=== PATIENT | female | born 1935 | race Caucasian/White ===

== ENCOUNTER → 2017-08-11 15:46 | Outpatient (CLI) | payer MEDICARE, SELFPAY ==
[2017-08-11 17:23] LABS: Absolute Lymphocyte Count 1.77 X10^3/ul (0.83-4.51); Absolute Neutrophil Count 2.8 X10^3/uL (2.0-7.7); Basophil# 0.03 X10^3/uL; Basophil% 0.6 % (0-1); Eosinophil# 0.26 X10^3/uL; Eosinophils% 4.9 % (0-5); Hematocrit 31.9 % (37-47); Hemoglobin 9.8 g/dl (12.0-15.0); Lymphocyte # 1.77 X10^3/ul (4.0); Lymphocyte % 33.4 % (19-41); Mean Corp Hgb Conc 30.7 g/gl (32-36); Mean Corpuscular Hgb 24.2 pg (27.0-32.0); Mean Corpuscular Volume 78.8 fL (81-99); Mean Platelet Vol. 10.1 fl (6.2-12.0); Monocyte# 0.39 X10^3/uL; Monocyte% 7.4 % (0-10); Neutrophil # 2.84 X10^3/uL (2.7-7.7); Neutrophil % 53.5 % (47-70); Platelet Count 267 K/mm3 (150-450); RBC Distribution Width CV 16.4 % (11.6-14.6); RBC Distribution Width SD 46.5 fl (35.1-43.9); Red Blood Count 4.05 M/mm3 (4.2-5.4); White Blood Count 5.3 K/mm3 (4.4-11.0)
[2017-08-11 17:24] LABS: POSITIVE COUNT NO; POSITIVE DIFFERENTIAL NO; POSITIVE MORPHOLOGY NO
[2017-08-11 17:59] LABS: Anion Gap 9 (5-15); BUN 32 mg/dL (7-18); Calcium,Total 8.9 mg/dL (8.5-10.1); Chloride 106 mmol/L (98-107); EST Glomerular Filtration Rate 33 mL/min (>60); Est Glom Filt Rate - Afr Amer 40 mL/min (>60); Glucose 104 mg/dL (74-106); Potassium 3.9 mmol/L (3.5-5.1); Sodium Level 140 mmol/L (136-145)
[2017-08-11 18:11] LABS: BNP,B-Type NATRIURETIC PEPTIDE 211.6 pg/mL (0-100)
== END ==
PROVIDERS: Family Provider Nurse Practitioner; PCP Nurse Practitioner; Visit Provider Internal Medicine Cardiovascular Disease
DX: R06.02 Shortness of breath (principal); I10 Essential (primary) hypertension
CPT/HCPCS: 36415; 80048; 83880; 85025

== ENCOUNTER → 2017-08-25 15:47 | Outpatient (CLI) | payer MEDICARE, SELFPAY ==
[2017-08-25 16:30] LABS: Protein, Urine (Random) 23.4 mg/dL (<11.9); Protein:Creat Ratio 202 mg/g CRE (0-200)
== END ==
PROVIDERS: Family Provider Nurse Practitioner; PCP Nurse Practitioner; Visit Provider Internal Medicine Nephrology
DX: N18.3 Chronic kidney disease, stage 3 (moderate) (principal)
CPT/HCPCS: 82570; 84156

== ENCOUNTER → 2017-08-31 16:33 | Outpatient (CLI) | payer MEDICARE, SELFPAY ==
--- NOTE | 2017-08-31 16:34 | US_ITS ---
STUDY: RENAL ULTRASOUND - COMPLETE REASON FOR EXAM: Female, 82 years old. Chronic kidney disease stage III TECHNIQUE: Ultrasound evaluation of the kidneys was performed with real-time and static akhtar-scale imaging. COMPARISON: None. FINDINGS: RIGHT KIDNEY: Normal location of the right kidney, which is normal in size. The right kidney measures 13.4 x 5.2 x 7.3 cm. There is a normal cortex of the right kidney. The renal cortex measures 1.0 cm. There are no right renal calculi. There is right hydronephrosis a possible UPJ obstruction. DISTAL RIGHT URETER: There is non-visualization of the distal right ureter. LEFT KIDNEY: Normal location of the left kidney, which is smaller in size. The left kidney measures 8.8 x 4.2 x 3.5 cm. There is thinning cortex of the left kidney. The renal cortex measures 0.9 cm. There is no left renal mass or cyst. There are no left renal calculi. There is no left hydronephrosis. DISTAL LEFT URETER: There is non-visualization of the distal left ureter. BLADDER: The distended urinary bladder has a volume of 180 ml. There is a normal wall thickness of the distended urinary bladder. There is no demonstrated mass within the urinary bladder. There are no demonstrated bladder calculi. US/Kidney and Bladder IMPRESSION: Right hydronephrosis with possible UPJ obstruction. Smaller atrophic left kidney. Electronically Signed: Russell Kerns DO at 18:07 EDT Tel [phone], Service support ,
== END ==
PROVIDERS: Family Provider Nurse Practitioner; PCP Nurse Practitioner; Visit Provider Internal Medicine Nephrology
DX: N18.3 Chronic kidney disease, stage 3 (moderate) (principal); B19.20 Unspecified viral hepatitis C without hepatic coma
CPT/HCPCS: 76770

== ENCOUNTER → 2017-09-01 16:32 | Outpatient (CLI) | payer MEDICARE, SELFPAY ==
[2017-09-01 17:50] LABS: Albumin, Serum 3.7 g/dL (3.2-5.0); BUN 28 mg/dL (7-18); BUN/Creat Ratio 21.7 RATIO (10-20); Calcium,Total 9.5 mg/dL (8.5-10.1); Chloride 106 mmol/L (98-107); Creatinine, Serum 1.29 mg/dL (0.55-1.02); EST Glomerular Filtration Rate 42 mL/min (>60); Est Glom Filt Rate - Afr Amer 51 mL/min (>60); Glucose 102 mg/dL (74-106); Phosphorus 3.5 mg/dL (2.5-4.9); Potassium 3.7 mmol/L (3.5-5.1); Sodium Level 143 mmol/L (136-145)
== END ==
PROVIDERS: Family Provider Nurse Practitioner; PCP Nurse Practitioner; Visit Provider Internal Medicine Nephrology
DX: N17.9 Acute kidney failure, unspecified (principal)
CPT/HCPCS: 36415; 80069

== ENCOUNTER → 2017-09-10 09:35 | Outpatient (CLI) | payer MEDICARE, SELFPAY ==
--- NOTE | 2017-09-10 09:43 | NM_ITS ---
CLINICAL: 82-year-old female with reported history of right kidney hydronephrosis. 99m Tc MAG3 DIURETIC RENAL SCINTIGRAPHY COMPARISON: Renal ultrasound report 08/31/2017 FINDINGS: Following the intravenous administration of 11.0 mCi of 99m Tc MAG3, renal images reveal: 1. The flow study demonstrates relatively symmetric delayed, decreased arterial phase distribution of the radiopharmaceutical to the bilateral kidneys. 2. Immediate static delayed nephrogram images depict decreased, delayed uptake by the renal parenchyma of both kidneys. The right kidney is hypotrophic relative to the left kidney. Collecting structure visualization is defined at approximately 6 minutes following tracer injection bilaterally. Washout of the radiopharmaceutical by the renal parenchyma appears qualitatively delayed in both kidneys. Persistent collecting system activity is defined in the right and left renal units during 20 minutes of pre-Lasix sequential image acquisition. 3. The zruat-op-irvc ratio of total renal parenchymal function was calculated to be 42/58. Furosemide 40 mg was administered intravenously. The post Lasix T 1/2 washout of the left kidney collecting system activity was calculated to be < 10 minutes and > 20 minutes regarding the right kidney, (normal < 10 minutes). Analysis of the right kidney collecting system post Lasix time/activity curve demonstrates decreasing count statistics. NM/Renal Scan w/ Pharm Intervent IMPRESSION: 1. There is scintigraphic evidence of bilateral renal parenchymal, cortical dysfunction. The disparity in total contributing renal parenchymal function is likely explained by the hypotrophic right renal unit. 2. The left kidney collecting system demonstrates a normal physiologic response to induced diuresis. The right kidney collecting system demonstrates an abnormal response to furosemide administration consistent with a component of mechanical and/or functional obstruction in the appropriate clinical context. Electronically Signed: Mohan Cardneas DO at 22:42 EDT Tel , Service support ,
== END ==
PROVIDERS: Family Provider Nurse Practitioner; PCP Nurse Practitioner; Visit Provider Urology
DX: N13.5 Crossing vessel and stricture of ureter without hydronephrosis (principal)
CPT/HCPCS: 78708; A9562; J1940

== ENCOUNTER → 2017-09-28 11:56 | Outpatient (CLI) | payer MEDICARE, SELFPAY ==
[2017-09-28 14:07] LABS: Prothrombin Time (Protime)PT. 22.6 SECONDS (11.7-14.9)
[2017-09-28 14:12] LABS: ALB/GLOB Ratio 0.9 RATIO (0.9-2.4); AST(SGOT) 28 U/L (15-37); Alanine Aminotransfer ALT/SGPT 21 U/L (13-56); Albumin, Serum 3.6 g/dL (3.2-5.0); Alkaline Phosphatase 69 U/L (45-117); Anion Gap 9 (5-15); BUN 22 mg/dL (7-18); BUN/Creat Ratio 19.6 RATIO (10-20); Calcium,Total 9.3 mg/dL (8.5-10.1); Chloride 104 mmol/L (98-107); Creatinine, Serum 1.12 mg/dL (0.55-1.02); EST Glomerular Filtration Rate 49 mL/min (>60); Est Glom Filt Rate - Afr Amer 60 mL/min (>60); Globulin 3.8 g/dL (2.2-4.2); Glucose 102 mg/dL (74-106); Potassium 4.3 mmol/L (3.5-5.1); Protein, Total 7.4 g/dL (6.4-8.2); Sodium Level 142 mmol/L (136-145)
[2017-09-28 16:11] LABS: Absolute Lymphocyte Count 1.41 X10^3/ul (0.83-4.51); Absolute Neutrophil Count 3.2 X10^3/uL (2.0-7.7); Basophil# 0.01 X10^3/uL; Basophil% 0.2 % (0-1); Differential Indicated SCAN CRITERIA MET; Eosinophils% 5.6 % (0-5); Hemoglobin 11.5 g/dl (12.0-15.0); Lymphocyte # 1.41 X10^3/ul (4.0); Lymphocyte % 26.5 % (19-41); Mean Corp Hgb Conc 30.3 g/gl (32-36); Mean Corpuscular Hgb 25.7 pg (27.0-32.0); Mean Corpuscular Volume 84.8 fL (81-99); Mean Platelet Vol. 10.1 fl (6.2-12.0); Monocyte# 0.41 X10^3/uL; Monocyte% 7.7 % (0-10); POSITIVE COUNT NO; POSITIVE DIFFERENTIAL NO; POSITIVE MORPHOLOGY YES; Platelet Count 250 K/mm3 (150-450); RBC Distribution Width CV 21.6 % (11.6-14.6); RBC Distribution Width SD 66.7 fl (35.1-43.9); Red Blood Count 4.48 M/mm3 (4.2-5.4); White Blood Count 5.3 K/mm3 (4.4-11.0)
[2017-09-28 16:32] LABS: Differential Comment SCANNED
[2017-09-30 00:10] LABS: HCV Quant. RNA PCR HCV Not Detected IU/mL (.)
== END ==
PROVIDERS: Family Provider Nurse Practitioner; PCP Nurse Practitioner; Visit Provider Internal Medicine Nephrology
DX: I82.409 Acute embolism and thrombosis of unspecified deep veins of unspecified lower extremity (principal); N18.3 Chronic kidney disease, stage 3 (moderate); N17.9 Acute kidney failure, unspecified; B19.20 Unspecified viral hepatitis C without hepatic coma
CPT/HCPCS: 36415; 80053; 85025; 85610; 87522

== ENCOUNTER → 2018-03-18 12:08 | Outpatient (CLI) | payer MEDICARE, SELFPAY ==
[2018-03-18 13:17] LABS: Hematocrit 36.5 % (37-47); Hemoglobin 11.5 g/dl (12.0-15.0); Mean Corp Hgb Conc 31.5 g/gl (32-36); Mean Corpuscular Hgb 29.4 pg (27.0-32.0); Mean Corpuscular Volume 93.4 fL (81-99); Mean Platelet Vol. 9.9 fl (6.2-12.0); Platelet Count 243 K/mm3 (150-450); RBC Distribution Width CV 14.3 % (11.6-14.6); RBC Distribution Width SD 47.3 fl (35.1-43.9); Red Blood Count 3.91 M/mm3 (4.2-5.4); Scan Indicated on CBC? Y/N NO; White Blood Count 5.1 K/mm3 (4.4-11.0)
[2018-03-18 13:44] LABS: Albumin, Serum 3.5 g/dL (3.2-5.0); BUN 19 mg/dL (7-18); BUN/Creat Ratio 17.1 RATIO (10-20); Calcium,Total 8.8 mg/dL (8.5-10.1); Chloride 104 mmol/L (98-107); Creatinine, Serum 1.11 mg/dL (0.55-1.02); EST Glomerular Filtration Rate 50 mL/min (>60); Est Glom Filt Rate - Afr Amer 60 mL/min (>60); Ferritin 49 ng/mL (8-252); Glucose 92 mg/dL (74-106); Iron 109 ug/dL (50-170); Iron Binding Capacity,Total 326 ug/dL (250-450); Phosphorus 2.8 mg/dL (2.5-4.9); Potassium 3.4 mmol/L (3.5-5.1); Sodium Level 142 mmol/L (136-145)
== END ==
PROVIDERS: Family Provider Nurse Practitioner; PCP Nurse Practitioner; Referring Provider Internal Medicine Nephrology; Visit Provider Internal Medicine Nephrology
DX: N17.9 Acute kidney failure, unspecified (principal); D64.9 Anemia, unspecified
CPT/HCPCS: 36415; 80069; 82728; 83540; 83550; 85027

== ENCOUNTER 2019-02-27 00:14 | Emergency (ER) | payer MEDICARE, SELFPAY ==
[2018-07-15 15:46] VITALS: BMI 34.9
[2019-02-27 00:15] VITALS: BP 170/102; PULSE 69; RESP 15; TEMP 36.8; O2SAT 95; BMI 31.2
--- NOTE | 2019-02-27 00:40 | ED.DCSUM_ITS ---
History of Present Illness Chief Complaint: Nosebleed Informant: Patient Onset: Today Context: Sudden Onset Current Severity: Severe Maximum Severity: Mild Narrative: Patient is an 84-year-old female with history of stroke and atrial fibrillation on Coumadin presenting with epistaxis. Patient states she is getting ready to go to bed when she blew her nose softly. Patient then suddenly had a large amount of bleeding coming from her left nares. The bleeding persisted for a couple of hours until she get a hold of her daughter to take her to the emergency room. Patient is not sure how much blood she lost. She did call her primary care doctor who told her to come into the ER to get her INR checked. Patiently states she currently feels fine. She did she feel that she had a small cold earlier today but denies any other complaints. She states she did not do anything to get the bleeding to stop such as holding pressure but just held tissue paper to her nose. Patient denies any history of nosebleeds. She denies any trauma to her nose. She denies any other complaints at this time. Past Medical History - Allergies and Home Meds Allergies/Adverse Reactions: Allergies diclofenac sodium [From Voltaren] Allergy (Verified 02/27/19 01:04) Unknown rofecoxib [From Vioxx] Allergy (Verified 02/27/19 01:04) Unknown cashews Allergy (Mild, Uncoded 10/07/14 21:13) Itching Primary Care Physician: Joselin Cano NP-C [Primary Care Provider] - Past Medical History: - - Atrial fibrillation, stroke, Hypertension, hyperlipidemia, COPD, valvular heart disease, rheumatoid arthritis Surgical History: no surgical history Smoking Status: Never smoker - Family History Maternal Family History: Family History (Last Reviewed 07/15/18 @ 16:01 by Chirag Toney MD) Father Heart disease Mother CVA (cerebral vascular accident) Hypertension Family History: Reports: No pertinent history Review of Systems All systems negative except as indicated ENT: Reports: - - Epistaxis Physical Exam Vital Signs/Narrative: Vital Signs Temp Pulse Resp BP Pulse Ox 02/27/19 00:15 98.3 F 69 15 170/102 H 95 Inital Vital Signs reviewed: Yes General: Well nourished, Well developed, No Acute Distress Head: Normocephalic, Atraumatic Eyes: Perrl, EOMI ENT: Moist mucous membranes, No rhinorrhea, - - Dried blood noted in the left nares but no active bleeding or obvious source of bleeding noted, small amount of bright red blood noted in the oropharynx but no active bleeding is visualized Neck: Supple, Nontender Cardiovascular: Regular rate, No murmurs, Irregular Respiratory: No distress, CTA bilaterally, Chest nontender Abdomen: Soft, Nondistended Back: Nontender, Normal Inspection Extremities: Nontender Skin: Normal color, No rash. Negative for: Pallor Neurological: Alert, Oriented x3 Psychological: Normal affect, Normal Mood Diagnostic/Tx/Re-eval Laboratory Data 02/27/19 02/27/19 00:58 00:58 WBC 6.1 RBC 4.12 L Hgb 12.0 Hct 37.8 MCV 91.7 MCH 29.1 MCHC 31.7 L RDW Std Deviation 47.3 H RDW Coeff of [place] 14.0 Plt Count 177 MPV 9.8 Immature Gran % (Auto) 0.200 Neut % (Auto) 49.7 Lymph % (Auto) 36.5 [place] % (Auto) 8.7 Eos % (Auto) 4.4 Baso % (Auto) 0.5 Absolute Neuts (auto) 3.0 Absolute Lymphs (auto) 2.22 Nucleated RBC % 0 PT 26.7 H INR 2.5 - Medical Decision Making She is evaluated for epistaxis. She appears nontoxic in no acute distress. She is hemodynamically stable. INR checked is 2.5. Is therapeutic. Patient does not have any additional bleeding while in the emergency room. Her hemoglobin is normal and she does not have any physical exam findings concerning for acute blood loss anemia. Patient is ambulated and has no further bleeding. She is counseled on epistaxis care if she should start bleeding again. She is encouraged to continue taking her Coumadin as prescribed. She is counseled on use of nasal saline and he minified oxygen to help prevent further irritation of her nose. Patient and family are counseled on signs and symptoms requiring return to emergency room. Patient discharged home in stable condition. Patient verbalizes agreement understanding with this plan. ED Disposition - Plan for ED Patient: Disposition: Home or Assisted Living Diagnosis: Epistaxis, assisted current use of anticoagulants with INR goal of 2.0-3.0 Instructions: Nosebleed Referrals: Ciesa,Joselin, [employer]ELOP[employer]INEER-C [Primary Care Provider] - Additional Instructions: Continue taking your Coumadin as prescribed. Return the emergency room if you develop persistent nosebleeding that does not improve with direct pressure. Please follow-up with your primary care doctor later in the week.
[2019-02-27 01:06] LABS: Absolute Lymphocyte Count 2.22 X10^3/uL (0.83-4.51); Basophil# 0.03 X10^3/uL; Basophil% 0.5 % (0-1); Eosinophil# 0.27 X10^3/uL; Eosinophils% 4.4 % (0-5); Hematocrit 37.8 % (37-47); Lymphocyte # 2.22 X10^3/ul (4.0); Lymphocyte % 36.5 % (19-41); Mean Corp Hgb Conc 31.7 g/dL (32-36); Mean Corpuscular Hgb 29.1 pg (27.0-32.0); Mean Corpuscular Volume 91.7 fL (81-99); Mean Platelet Vol. 9.8 fl (6.2-12.0); Monocyte# 0.53 X10^3/uL; Monocyte% 8.7 % (0-10); NRBC Flagged by Analyzer 0 % (0-5); Neutrophil # 3.03 X10^3/uL (2.7-7.7); Neutrophil % 49.7 % (47-70); Platelet Count 177 K/mm3 (150-450); RBC Distribution Width SD 47.3 fl (35.1-43.9); Red Blood Count 4.12 M/mm3 (4.2-5.4); White Blood Count 6.1 K/mm3 (4.4-11.0)
[2019-02-27 01:13] LABS: International Normalized Ratio 2.5; Prothrombin Time (Protime)PT. 26.7 SECONDS (11.7-14.9)
== END 2019-02-27 02:10 | disposition home or self-care (01) ==
PROVIDERS: Emergency Provider Emergency Medicine; Family Provider Nurse Practitioner; PCP Nurse Practitioner
DX: R04.0 Epistaxis (principal); I10 Essential (primary) hypertension; E78.5 Hyperlipidemia, unspecified; J44.9 Chronic obstructive pulmonary disease, unspecified; I48.91 Unspecified atrial fibrillation; M06.9 Rheumatoid arthritis, unspecified; I35.9 Nonrheumatic aortic valve disorder, unspecified; Z86.73 Personal history of transient ischemic attack (TIA), and cerebral infarction without residual deficits; Z79.01 Long term (current) use of anticoagulants; Z79.82 Long term (current) use of aspirin; Z79.899 Other long term (current) drug therapy
CPT/HCPCS: 36415; 85025; 85610; 99282

== ENCOUNTER 2019-09-10 19:45 | Emergency (ER) | payer MEDICARE, SELFPAY ==
[2019-09-10 19:45] VITALS: BP 169/68; PULSE 51; RESP 18; TEMP 36.5; O2SAT 98; BMI 30.2
--- NOTE | 2019-09-10 19:50 | CT_ITS ---
STUDY: CT BRAIN WITHOUT CONTRAST REASON FOR EXAM: Female, 84 years old. Fall. RADIATION DOSAGE (If Supplied By Facility): CTDIvol = ( 44.99 ) mGy, DLP = ( 779.24 ) mGycm TECHNIQUE: Transaxial CT imaging of the brain was performed without administration of intravenous contrast material. Individualized dose optimization techniques were used for this CT. COMPARISON: 10/08/2014. FINDINGS: There is no acute bleed or infarct. There are stable chronic ischemic and atrophic changes. The ventricles are normal in configuration. There is no hydrocephalus. The visualized paranasal sinuses are clear. The mastoid air cells are well aerated. There is no skull fracture. There is soft tissue swelling overlying the left eye. CT/Brain/Head without Contrast IMPRESSION: Stable chronic ischemic and atrophic changes. No acute intracranial abnormality. Soft tissue swelling overlying the left eye. Electronically Signed: Alexsander Reaves, at 21:42 EDT Tel , Service support ,
--- NOTE | 2019-09-10 19:50 | CT_ITS ---
STUDY: CT CERVICAL SPINE WITHOUT CONTRAST REASON FOR EXAM: Female, 84 years old. Fall RADIATION DOSAGE (If Supplied By Facility): CTDIvol = ( 22.39 ) mGy, DLP = ( 384.95 ) mGycm TECHNIQUE: High resolution transaxial imaging was performed without contrast material. Sagittal and coronal images were reconstructed. Individualized dose optimization techniques were used for this CT. COMPARISON: None available. FINDINGS: There is no evidence of fracture or dislocation in the cervical spine. The dens is intact. Alignment is normal. The vertebral body heights are well-maintained. There are advanced multilevel degenerative changes with facet hypertrophy, disc space narrowing and osteophytes. There is grade 1 anterolisthesis of C3 with respect to C4, C4 respect to C5 and C5 with respect to C6. The visualized paraspinal soft tissues are within normal limits. CT/Spine Cervical without Contras IMPRESSION: No fracture or dislocation in the cervical spine. Advanced degenerative changes with grade 1 anterolisthesis of C3 with respect to C4, C4 with respect to C5 and C5 with respect to C6. Electronically Signed: Alexsander Reaves, at 21:52 EDT Tel , Service support ,
[2019-09-10] MEDS: Diphth,Pertuss(Acell),Tet Vac 0.5 ML Vial IM (20:17)
[2019-09-10] MEDS: Acetaminophen 500 MG Tablet 1000 MG PO (20:17)
--- NOTE | 2019-09-10 20:30 | RAD_ITS ---
STUDY: X-RAY - LEFT KNEE REASON FOR EXAM: Female, 84 years old. Fall. Pain. TECHNIQUE: 2 view(s) of the knee. COMPARISON: None. FINDINGS: There is no evidence of fracture or dislocation. The patient is status post left knee arthroplasty. The hardware is intact and alignment is satisfactory. There are no radiodense foreign bodies. RAD/Knee 1 or 2 Views IMPRESSION: Left knee arthroplasty with intact hardware in satisfactory alignment. No fracture or dislocation. Electronically Signed: Alexsander Reaves, at 20:48 EDT Tel , Service support ,
--- NOTE | 2019-09-10 20:30 | RAD_ITS ---
STUDY: X-RAY - LEFT SHOULDER REASON FOR EXAM: Female, 84 years old. Fall. Pain. TECHNIQUE: 2 view(s) of the shoulder. COMPARISON: None. FINDINGS: There is no evidence of fracture or dislocation. There are severe degenerative changes with elevation of the humeral head, consistent with a rotator cuff tear. There are no radiodense foreign bodies. RAD/Shoulder min 2 Views IMPRESSION: No fracture or dislocation. Severe degenerative changes with elevation of the humeral head which is consistent with a rotator cuff tear. Electronically Signed: Alexsander Reaves, at 20:56 EDT Tel , Service support ,
[2019-09-10 20:39] LABS: International Normalized Ratio 2.4; Prothrombin Time (Protime)PT. 25.4 SECONDS (11.7-14.9)
[2019-09-10 22:18] VITALS: BP 161/86; PULSE 50; RESP 16; O2SAT 99
--- NOTE | 2019-09-10 22:22 | ED.DCSUM_ITS ---
- ER Visit Summary Date of Service: 09/10/19 Chief Complaint: Fall History of Present Illness: The patient is a 84 F who sees Joselin dominguez. She reports that just prior to coming emergency department she lost her balance and fell. She hit her head and is on Coumadin. She is unsure whether she had a loss of consciousness. She reports that she has left shoulder pain and head pain that are not real bad. She is unsure when her last tetanus shot was. Physical Examination: Vitals: Stable. Afebrile. Head: Soft tissue swelling and hematoma to the left superior orbital ridge. There is no hyphema. There is no conjunctival injection. Extraocular motions are intact. Neck: No vertebral tenderness. Full ROM without difficulty. Cleared by NEXUS criteria. Back: No vertebral tenderness. General: A&O x 3. NAD. Cardiovascular exam: Regular rate and rhythm, no murmur, rub or gallop. Respiratory exam: Chest nontender. No crepitus. Clear to auscultation bilaterally. No wheezes or stridor. Abdominal exam: Soft, nontender, nondistended, normal bowel sounds. No pain in RUQ or LUQ specifically. No peritoneal signs. Extremity: Mild tenderness palpation over the left knee. Good range of motion without any difficulty. Mild tenderness palpation over the proximal humerus on the left. Good range of motion here without difficulty as well. She has a 2 cm skin tear on the posterior surface of her left elbow. She is neurovascular intact distal to these wounds. Test Results: INR is 2.4 Clinical Impression(s) from Imaging Studies Brain CT 09/10/19 19:50 IMPRESSION: Stable chronic ischemic and atrophic changes. No acute intracranial abnormality. Soft tissue swelling overlying the left eye. Electronically Signed: Alexsander Reaves, at 21:42 EDT Tel , Service support , Cervical Spine CT 09/10/19 19:50 IMPRESSION: No fracture or dislocation in the cervical spine. Advanced degenerative changes with grade 1 anterolisthesis of C3 with respect to C4, C4 with respect to C5 and C5 with respect to C6. Electronically Signed: Alexsander Reaves, at 21:52 EDT Tel , Service support , Knee X-Ray 09/10/19 20:30 IMPRESSION: Left knee arthroplasty with intact hardware in satisfactory alignment. No fracture or dislocation. Electronically Signed: Alexsander Reaves, at 20:48 EDT Tel , Service support , Shoulder X-Ray 09/10/19 20:30 IMPRESSION: No fracture or dislocation. Severe degenerative changes with elevation of the humeral head which is consistent with a rotator cuff tear. Electronically Signed: Alexsander Reaves, at 20:56 EDT Tel , Service support , Emergency Department Course and Treatment: Patient had her tetanus updated. She had her wound cleansed and a dressing was placed. Treatment Plan: I discussed the findings with her son. Patient will be discharged with instructions to follow-up with her primary care physician in 3 to 5 days for another exam. Return to the emergency department for any worsening symptoms. Disposition: To home in improved and stable condition. Impression: 1. Fall. 2. Facial hematoma. 3. Skin tear left elbow. 4. Coumadin coagulopathy. This note was generated with [employer] software. It may contain incorrect words, spelling, and punctuation that were not noted in review of the chart prior to signing ED Disposition - Plan for ED Patient: Disposition: Home or Assisted Living Instructions: ED AVULSION LACERATION Referrals: Joselin Cano, [employer] [facility]-C [Primary Care Provider] - 3-5 Days
[2019-09-10 22:37] VITALS: BP 161/86; PULSE 50; RESP 16; O2SAT 99
== END 2019-09-10 22:46 | disposition home or self-care (01) ==
PROVIDERS: Emergency Provider Emergency Medicine; PCP Nurse Practitioner
DX: S00.83XA Contusion of other part of head, initial encounter (principal); S51.012A Laceration without foreign body of left elbow, initial encounter; D68.32 Hemorrhagic disorder due to extrinsic circulating anticoagulants; T45.515A Adverse effect of anticoagulants, initial encounter; W19.XXXA Unspecified fall, initial encounter; Y93.9 Activity, unspecified; Y92.9 Unspecified place or not applicable; Z79.01 Long term (current) use of anticoagulants
CPT/HCPCS: 70450; 72125; 73030; 73560; 85610; 90471; 90715; 99284; A4216

== ENCOUNTER → 2020-05-25 16:55 | Outpatient (REF) | payer MEDICARE, SELFPAY ==
[2020-05-25 17:51] LABS: International Normalized Ratio 1.9; Prothrombin Time (Protime)PT. 20.9 SECONDS (11.7-14.9)
== END ==
LOC: OLS.DANBUR 16:55
PROVIDERS: PCP Nurse Practitioner; Visit Provider Internal Medicine Cardiovascular Disease
DX: Z79.01 Long term (current) use of anticoagulants (principal)
CPT/HCPCS: 36415; 85610

== ENCOUNTER → 2020-06-05 05:00 | Outpatient (REF) | payer MEDICARE, SELFPAY ==
[2020-06-05 07:35] LABS: Prothrombin Time Fingerstick 26.9 SEC (11.9-14.4)
== END ==
LOC: OLS.DANBUR 05:00
PROVIDERS: PCP Nurse Practitioner; Visit Provider Nurse Practitioner
DX: Z79.01 Long term (current) use of anticoagulants (principal)
CPT/HCPCS: 36416; 85610

== ENCOUNTER → 2020-06-12 05:00 | Outpatient (REF) | payer MEDICARE, SELFPAY | LOC: OLS.DANBUR 05:00 | PROVIDERS: PCP Nurse Practitioner | DX: Z79.01 Long term (current) use of anticoagulants (principal) | CPT/HCPCS: 36416; 85610 ==

== ENCOUNTER → 2020-06-19 05:00 | Outpatient (REF) | payer MEDICARE, SELFPAY ==
[2020-06-19 07:10] LABS: Prothrombin Time Fingerstick 20.3 SEC (11.9-14.4)
== END ==
LOC: OLS.DANBUR 05:00
PROVIDERS: PCP Nurse Practitioner; Visit Provider Nurse Practitioner
DX: Z79.01 Long term (current) use of anticoagulants (principal)
CPT/HCPCS: 36416; 85610

== ENCOUNTER → 2020-07-19 05:00 | Outpatient (REF) | payer MEDICARE, SELFPAY ==
[2020-07-19 07:16] LABS: Absolute Lymphocyte Count 1.22 X10^3/uL (0.83-4.51); Absolute Neutrophil Count 2.3 X10^3/uL (2.0-7.7); Basophil# 0.02 X10^3/uL; Basophil% 0.5 % (0-1); Eosinophil# 0.18 X10^3/uL; Eosinophils% 4.4 % (0-5); Hematocrit 36.4 % (37-47); Lymphocyte # 1.22 X10^3/ul (4.0); Lymphocyte % 29.5 % (19-41); Mean Corpuscular Volume 87.9 fL (81-99); Mean Platelet Vol. 10.4 fl (6.2-12.0); Monocyte# 0.44 X10^3/uL; Monocyte% 10.7 % (0-10); NRBC Flagged by Analyzer 0 % (0-5); Neutrophil # 2.26 X10^3/uL (2.7-7.7); Neutrophil % 54.7 % (47-70); Platelet Count 189 K/mm3 (150-450); RBC Distribution Width CV 13.7 % (11.6-14.6); RBC Distribution Width SD 44.1 fl (35.1-43.9); Red Blood Count 4.14 M/mm3 (4.2-5.4); White Blood Count 4.1 K/mm3 (4.4-11.0)
[2020-07-19 07:30] LABS: Prothrombin Time (Protime)PT. 39.3 SECONDS (11.7-14.9)
[2020-07-19 07:31] LABS: Erythrocyte Sedimentation Rate 44 mm/hr (0-30)
[2020-07-19 07:39] LABS: International Normalized Ratio 4.1
[2020-07-19 07:52] LABS: ALB/GLOB Ratio 0.8 RATIO (0.9-2.4); AST(SGOT) 25 U/L (15-37); Alanine Aminotransfer ALT/SGPT 21 U/L (13-56); Albumin, Serum 2.9 g/dL (3.2-5.0); Alkaline Phosphatase 74 U/L (45-117); Anion Gap 9 (5-15); BUN 27 mg/dL (7-18); BUN/Creat Ratio 23.1 RATIO (10-20); Calcium,Total 9.3 mg/dL (8.5-10.1); Chloride 110 mmol/L (98-107); Creatinine, Serum 1.17 mg/dL (0.55-1.02); EST Glomerular Filtration Rate 47 mL/min (>60); Est Glom Filt Rate - Afr Amer 56 mL/min (>60); Globulin 3.7 g/dL (2.2-4.2); Glucose 82 mg/dL (74-106); Potassium 3.6 mmol/L (3.5-5.1); Protein, Total 6.6 g/dL (6.4-8.2); Sodium Level 143 mmol/L (136-145)
== END ==
LOC: OLS.DANBUR 05:00
PROVIDERS: PCP Nurse Practitioner; Referring Provider Family Medicine; Visit Provider Family Medicine
DX: I48.91 Unspecified atrial fibrillation (principal); D64.9 Anemia, unspecified; E78.5 Hyperlipidemia, unspecified; E03.9 Hypothyroidism, unspecified; N18.2 Chronic kidney disease, stage 2 (mild); Z79.01 Long term (current) use of anticoagulants
CPT/HCPCS: 36415; 80053; 85025; 85610; 85652

== ENCOUNTER → 2020-08-02 05:00 | Outpatient (REF) | payer MEDICARE, SELFPAY ==
[2020-08-02 07:06] LABS: Prothrombin Time Fingerstick 53.1 SEC (11.9-14.4)
[2020-08-02 07:36] LABS: Prothrombin Time (Protime)PT. 46.3 SECONDS (11.7-14.9)
[2020-08-02 07:48] LABS: International Normalized Ratio 5.1
== END ==
LOC: OLS.DANBUR 05:00
PROVIDERS: PCP Nurse Practitioner; Referring Provider Family Medicine; Visit Provider Family Medicine
DX: I48.91 Unspecified atrial fibrillation (principal); Z79.01 Long term (current) use of anticoagulants
CPT/HCPCS: 36416; 85610

== ENCOUNTER → 2020-08-06 04:00 | Outpatient (REF) | payer MEDICARE, SELFPAY ==
[2020-08-06 07:05] LABS: INR Fingerstick 1.9; Prothrombin Time Fingerstick 21.7 SEC (11.9-14.4)
== END ==
LOC: OLS.DANBUR 04:00
PROVIDERS: PCP Nurse Practitioner; Visit Provider Family Medicine
DX: I48.91 Unspecified atrial fibrillation (principal); Z79.01 Long term (current) use of anticoagulants
CPT/HCPCS: 36416; 85610

== ENCOUNTER → 2020-08-20 05:00 | Outpatient (REF) | payer MEDICARE, SELFPAY ==
[2020-08-20 07:45] LABS: INR Fingerstick 1.9; Prothrombin Time Fingerstick 21.7 SEC (11.9-14.4)
== END ==
LOC: OLS.DANBUR 05:00
PROVIDERS: PCP Nurse Practitioner; Visit Provider Family Medicine
DX: I48.91 Unspecified atrial fibrillation (principal); Z79.01 Long term (current) use of anticoagulants
CPT/HCPCS: 36416; 85610

== ENCOUNTER → 2020-09-13 05:00 | Outpatient (REF) | payer MEDICARE, SELFPAY ==
[2020-09-13 06:41] LABS: INR Fingerstick 3.5; Prothrombin Time Fingerstick 37.8 SEC (11.9-14.4)
== END ==
LOC: OLS.DANBUR 05:00
PROVIDERS: PCP Nurse Practitioner; Visit Provider Family Medicine
DX: Z79.01 Long term (current) use of anticoagulants (principal)
CPT/HCPCS: 36416; 85610

== ENCOUNTER → 2020-09-27 05:00 | Outpatient (REF) | payer MEDICARE, SELFPAY ==
[2020-09-27 07:11] LABS: INR Fingerstick 1.8; Prothrombin Time Fingerstick 20.4 SEC (11.9-14.4)
== END ==
LOC: OLS.DANBUR 05:00
PROVIDERS: PCP Nurse Practitioner; Visit Provider Family Medicine
DX: Z79.01 Long term (current) use of anticoagulants (principal)
CPT/HCPCS: 36416; 85610

== ENCOUNTER → 2020-10-25 05:00 | Outpatient (REF) | payer MEDICARE, SELFPAY ==
[2020-10-25 07:06] LABS: INR Fingerstick 1.3; Prothrombin Time Fingerstick 15.2 SEC (11.9-14.4)
== END ==
LOC: OLS.DANBUR 05:00
PROVIDERS: PCP Nurse Practitioner; Visit Provider Family Medicine
DX: I48.91 Unspecified atrial fibrillation (principal); Z79.01 Long term (current) use of anticoagulants
CPT/HCPCS: 36416; 85610

== ENCOUNTER 2020-10-28 11:37 | Observation (INO) | payer MEDICARE, SELFPAY ==
[2020-10-28 11:40] VITALS: BP 139/79; PULSE 59; RESP 16; TEMP 36.6; O2SAT 96; BMI 28.5
--- NOTE | 2020-10-28 11:59 | RAD_ITS ---
STUDY: X-RAY - PELVIS AND LEFT HIP REASON FOR EXAM: Female, 85 years old. fall, pain TECHNIQUE: 3 views of the pelvis and hip. COMPARISON: None. FINDINGS: Examination is technically challenging due to obscuration of the sacrum and symphysis pubis by bowel gas. There is probably deformity of the pubis, possibly due to remote fracture, less likely acute. Left hip is intact and located. Periarticular soft tissues are normal. Bones are diffusely demineralized. RAD/HIP, UNI W/ Pelvis 2-3 Views IMPRESSION: 1. Intact left hip. 2. Deformity of the pubis, unclear if acute or chronic fracture. Refer to CT pelvis for definitive evaluation. Electronically Signed: Jigar Duong MD at 14:03 EDT Tel , Service support ,
--- NOTE | 2020-10-28 11:59 | RAD_ITS ---
STUDY: X-RAY - LEFT ANKLE REASON FOR EXAM: Female, 85 years old. pain, falls TECHNIQUE: 3 view(s) of the ankle. COMPARISON: None. FINDINGS: Normal visualized distal tibia and fibula. Normal medial and lateral malleoli. Normal tibiotalar articulation and ankle mortise. Mineralization is diffusely decreased. Normal visualized talus and calcaneus. There are degenerative changes in the midfoot. The visualized subtalar, talonavicular, calcaneocuboid and tarsal articulations are normal. The soft tissue structures are unremarkable. Base of fifth metatarsal is not seen. RAD/Ankle min 3 Views IMPRESSION: No acute fracture. Age-related degenerative and osteoporotic change. Electronically Signed: Jigar Duong MD at 14:00 EDT Tel , Service support ,
--- NOTE | 2020-10-28 11:59 | CT_ITS ---
HISTORY: falls, altered mental status. TECHNIQUE: Multiple axial images were obtained of the brain without intravenous contrast. A radiation dose optimization technique was used for this scan. # of images incl. paperwork: 235. COMPARISON: 09/10/2019. FINDINGS: BRAIN PARENCHYMA:Multiple small foci and zones of low attenuation in the cerebral white matter most compatible with chronic small vessel ischemic gliosis. INTRACRANIAL HEMORRHAGE: No acute intracranial hemorrhage. CSF SPACES/MASS EFFECT: Diffuse atrophy with compensatory ventricular enlargement. No midline shift or other significant mass effect. ORBITS: Bilateral lens resections. CALVARIUM: Intact. PARANASAL SINUSES AND MASTOID AIR CELLS: Clear. ASPECTS Score for Acute Strokes: 10. CT/Brain/Head without Contrast IMPRESSION: No acute intracranial process identified. Chronic small vessel ischemic gliosis. Individualized dose optimization techniques were used for this CT. at 1409 Reported and signed by: Marva Mercedes MD Electronically Signed: Marva Mercedes MD at 14:08 EDT Tel , Service support ,
--- NOTE | 2020-10-28 11:59 | RAD_ITS ---
STUDY: X-RAY - LEFT KNEE REASON FOR EXAM: Female, 85 years old. pain, falls TECHNIQUE: 4 view(s) of the knee. COMPARISON: To September 2019 FINDINGS: There is expected intact appearance of left total knee arthroplasty. Hardware components are intact. Bone hardware interface is normal. RAD/Knee 4 or More Views IMPRESSION: Normal left knee arthroplasty. Electronically Signed: Jigar Duong MD at 14:04 EDT Tel , Service support ,
--- NOTE | 2020-10-28 11:59 | RAD_ITS ---
STUDY: X-RAY CHEST REASON FOR EXAM: Female, 85 years old. falls chest trauma TECHNIQUE: Frontal portable view of the chest COMPARISON: 31 August 2015 FINDINGS: Inspiratory volumes are low. Cardiac silhouette is severely enlarged obscuring left lower lobe and medial aspect of the right lower lobe. Visualized portion of the right lung is clear. There is a left upper lobe nodule imaged on prior CT, presumed granuloma. There is no pneumothorax, pulmonary edema or pleural effusions. There is severe left shoulder degeneration RAD/Chest 1 View (Portable) IMPRESSION: 1. No acute findings. 2. Severe cardiomegaly. 3. Suboptimally evaluated left lower lobe. 4. Severe left shoulder degeneration. . Electronically Signed: Jigar Duong MD at 14:08 EDT Tel , Service support ,
--- NOTE | 2020-10-28 12:02 | EDS_ITS ---
HPI HPI - Fall History of Present Illness Chief Complaint: Lower Extremity Injury Informant: patient, family and EMS Narrative Narrative: Multiple falls in the last couple days, none of them witnessed. Now patient does not want to walk or bear weight on her left lower extremity. At baseline she is demented lives in assisted living and walks with a walker but does not always remember to use it. Daughter states she has been a little more confused than usual in the past 2 weeks. No testing has been done prior to being transferred here to the ER. Line arrest the patient has no complaints, but the review of systems is significantly limited due to her dementia. [facility] Medical History (Updated 10/28/20 @ 14:[address] Josef Champagne MD) Carotid stenosis COPD (chronic obstructive pulmonary disease) Diverticulitis HLD (hyperlipidemia) HTN (hypertension) Hypothyroidism Nonrheumatic mitral valve regurgitation Nonrheumatic tricuspid (valve) insufficiency Osteoarthritis Persistent atrial fibrillation Rheumatoid arthritis TIA (transient ischemic attack) Home Medications aspirin 81 mg PO DAILY@0800 08/14/14 [History Last Taken 10/07/14 08:00] cholecalciferol (vitamin D3) 1,000 unit PO DAILY 08/14/14 [History Last Taken 10/07/14 08:00] levothyroxine 137 mcg PO DAILY 08/14/14 [History Last Taken Unknown] warfarin 5 mg tablet 5 mg PO .COMPLEX 08/11/17 [History Last Taken Unknown] ferrous sulfate 325 mg (65 mg iron) tablet 325 mg PO QDAY tab 11/24/17 [History Last Taken Unknown] multivitamin 1 tab PO QDAY 11/24/17 [History Last Taken Unknown] losartan 100 mg PO DAILY 02/27/19 [History Last Taken Unknown] furosemide 40 mg tablet 40 mg PO QDAY #90 tab 06/21/20 [Rx Last Taken Unknown] buspirone 10 mg PO BID 10/28/20 [History Last Taken Unknown] lorazepam 0.5 mg PO BID 10/28/20 [History Last Taken Unknown] mirtazapine 7.5 mg PO QHS 10/28/20 [History Last Taken Unknown] omeprazole 20 mg PO DAILY 10/28/20 [History Last Taken Unknown] pramipexole 0.125 mg PO QHS 10/28/20 [History Last Taken Unknown] risperidone 0.25 mg PO QHS 10/28/20 [History Last Taken Unknown] Allergy/AdvReac Type Severity Reaction Status Date / Time diclofenac sodium Allergy Unknown Verified 10/28/20 11:46 [From Voltaren] rofecoxib [From Vioxx] Allergy Unknown Verified 10/28/20 11:46 cashews Allergy Mild Itching Uncoded 10/28/20 11:46 Family History Father Heart disease Mother CVA (cerebral vascular accident) Hypertension Surgical History History of bilateral knee replacement History of delivery History of tonsillectomy History of total hysterectomy Social History Smoking Status: Never smoker alcohol intake: never substance use type: does not use ROS ROS ED Review of Systems ROS Unobtainable: due to mental condition and due to mental status Gastrointestinal Gastrointestinal: Denies nausea Musculoskeletal Musculoskeletal: Reports as per HPI, difficulty walking and extremity pain Neurologic Neurologic: Reports as per HPI and confusion; Denies abnormal speech, behavior changes, paresthesias or weakness EXAM Physical Exam Const Vital Signs: 10/28/20 11:40 Temperature 97.9 F Temperature Source Temporal Pulse Rate 59 L Respiratory Rate 16 Blood Pressure 139/79 H Blood Pressure Mean 99 Pulse Ox 96 Oxygen Delivery Method Room Air Positive well nourished and well developed General Appearance ED: well developed and NAD HEENT Reports TM's clear and nasal mucous membranes and turbinates normal atraumatic Face and Sinus: Negative for facial tenderness Tympanic Membrane ED: Yes TM's clear Eyes PERRL and EOMs intact bilaterally Visual Acuity: other Other Details: no entrapment or pain with extraocular movements Neck full ROM and supple General: Negative for tenderness Chest Wall inspection of chest normal and palpation of chest normal Chest: symmetrical chest wall rise; Negative for crepitus or tenderness Resp normal respiratory effort and clear to auscultation bilaterally Percussion: other equal BS bilat Cardio no murmurs Rate: regular rate Rhythm: regular rhythm GI normal to inspection, nondistended, normoactive bowel sounds, soft to palpation and non-tender Back/Spine normal ROM Cervical Spine: Negative for cervical spine tenderness Thoracic Spine / Upper Back: Negative for thoracic spinal tenderness Lumbar Spine / Lower Back: Negative for lumbar spinal tenderness Extremity normal to inspection and full ROM Extremity Narrative: Patient does not have pain in the left knee with ranging it, but does complain of pain with internal/external rotation of the hip but has trouble localizing the pain. Also seems mildly tender in the medial and lateral malleoli, no deformities. Multiple minor contusions both lower legs and feet. No pain with full range of motion of all 3 other extremities. Pelvis stable to AP compression. No deformities anywhere. Well-healed scars both anterior knees of total knee arthroplasties. General Extremety ED: Negative for tenderness Neuro CN's II-XII intact bilaterally, moves all extremities, no focal motor deficits and no sensory deficits noted Eliz Coma Scale: document GCS findings Spontaneous Obeys Commands Confused 14 Sensorium / Orientation: awake, alert and oriented to person Psych mental status grossly normal and thought process normal Skin no wounds Lesions: no lesions Rashes: no rashes MDM MDM MDM Narrative Medical decision making narrative: ON chronic renal insufficiency the patient's metabolic work-up is negative. No signs of any infection on her chest x-ray or urinalysis. With bending her left knee she does not have any significant pain, however with internal/external rotation of her left hip, she was complaining of pain throughout the left thigh and down into the knee, she had trouble localizing the pain. She is also having trouble bearing weight. I am suspicious that she has an inferior pubic ramus fracture based on the x-rays, radiology recommended CT for further evaluation of that, but more definitively, she has an acute spiral nondisplaced fracture of the left distal femur which is confined to the distribution of the stem of her proximal total knee arthroplasty revision. Discussed with Dr. Hayes, I showed him the femur films, he agreed that it was more likely to be nonoperative and the patient could stay here under hospitalist service and he would see in the morning. Knee immobilizer was fixed to the patient's left knee. She did not require any pain medication since she had no pain while at rest not moving. Lab Data Attestation: I reviewed the patient's lab results. Labs: Laboratory Results - last 24 hr 10/28/20 10/28/20 10/28/20 12:30 12:30 12:50 WBC 6.9 RBC 4.35 Hgb 11.9 L Hct 38.4 MCV 88.3 MCH 27.4 MCHC 31.0 L RDW Std Deviation 47.2 H RDW Coeff of [place] 14.6 Plt Count 233 MPV 9.7 Immature Gran % (Auto) 0.400 Neut % (Auto) 73.8 H Lymph % (Auto) 15.9 L [place] % (Auto) 7.7 Eos % (Auto) 1.9 Baso % (Auto) 0.3 Absolute Neuts (auto) 5.1 Absolute Lymphs (auto) 1.10 Nucleated RBC % 0 Sodium 140 Potassium 3.6 Chloride 104 Carbon Dioxide 29.0 Anion Gap 7 BUN 27 H Creatinine 1.43 H Estim Creat Clear Calc 22.33 Est GFR (MDRD) Af Amer 45 L Est GFR (MDRD) Non-Af 37 L BUN/Creatinine Ratio 18.9 Glucose 94 Calcium 9.5 Urine Color Yellow Urine Clarity Clear Urine pH 6.0 Ur Specific [place] 1.010 Urine Protein Negative Urine Glucose (UA) Normal Urine Ketones Negative Urine Occult Blood Negative Urine Nitrite Negative Urine Bilirubin Negative Urine Urobilinogen Normal Ur Leukocyte Esterase Negative Urine RBC 0 SEEN Urine WBC 0 SEEN Ur Squamous Epith Cells 0 SEEN Urine Bacteria 0 SEEN Urine Mucus 0 SEEN Radiography Diagnostic Testing: Radiology Impression Ankle X-Ray 10/28/20 11:59 IMPRESSION: No acute fracture. Age-related degenerative and osteoporotic change. Electronically Signed: Jigar Duong MD at 14:00 EDT Tel , Service support , Brain CT 10/28/20 11:59 IMPRESSION: No acute intracranial process identified. Chronic small vessel ischemic gliosis. Individualized dose optimization techniques were used for this CT. at 1409 Reported and signed by: Marva Mercedes MD Electronically Signed: Marva Mercedes MD at 14:08 EDT Tel , Service support , Chest X-Ray 10/28/20 11:59 IMPRESSION: 1. No acute findings. 2. Severe cardiomegaly. 3. Suboptimally evaluated left lower lobe. 4. Severe left shoulder degeneration. . Electronically Signed: Jigar Duong MD at 14:08 EDT Tel , Service support , Hip/Pelvis X-Ray 10/28/20 11:59 IMPRESSION: 1. Intact left hip. 2. Deformity of the pubis, unclear if acute or chronic fracture. Refer to CT pelvis for definitive evaluation. Electronically Signed: Jigar Duong MD at 14:03 EDT Tel , Service support , Knee X-Ray 10/28/20 11:59 IMPRESSION: Normal left knee arthroplasty. Electronically Signed: Jigar Duong MD at 14:04 EDT Tel , Service support , ADDENDUM: 10/28/20 1424 Discharge Plan Dx/Rx/DC Orders Clinical Impression: Closed fracture of distal end of left femur, Fracture of left inferior pubic ramus, Multiple falls, Dementia Disposition Disposition: Acute Care [facility]
[2020-10-28 12:41] LABS: Absolute Neutrophil Count 5.1 X10^3/uL (2.0-7.7); Basophil# 0.02 X10^3/uL; Basophil% 0.3 % (0-1); Eosinophil# 0.13 X10^3/uL; Eosinophils% 1.9 % (0-5); Hematocrit 38.4 % (37-47); Hemoglobin 11.9 g/dL (12.0-15.0); Lymphocyte % 15.9 % (19-41); Mean Corpuscular Hgb 27.4 pg (27.0-32.0); Mean Corpuscular Volume 88.3 fL (81-99); Mean Platelet Vol. 9.7 fl (6.2-12.0); Monocyte# 0.53 X10^3/uL; Monocyte% 7.7 % (0-10); NRBC Flagged by Analyzer 0 % (0-5); Neutrophil # 5.09 X10^3/uL (2.7-7.7); Neutrophil % 73.8 % (47-70); Platelet Count 233 K/mm3 (150-450); RBC Distribution Width CV 14.6 % (11.6-14.6); RBC Distribution Width SD 47.2 fl (35.1-43.9); Red Blood Count 4.35 M/mm3 (4.2-5.4); White Blood Count 6.9 K/mm3 (4.4-11.0)
[2020-10-28 12:53] LABS: Anion Gap 7 (5-15); BUN 27 mg/dL (7-18); BUN/Creat Ratio 18.9 RATIO (10-20); Calcium,Total 9.5 mg/dL (8.5-10.1); Chloride 104 mmol/L (98-107); Creatinine, Serum 1.43 mg/dL (0.55-1.02); EST Glomerular Filtration Rate 37 mL/min (>60); Est Glom Filt Rate - Afr Amer 45 mL/min (>60); Estimated Creatinine Clearance 22.33 ml/min; Glucose 94 mg/dL (74-106); Potassium 3.6 mmol/L (3.5-5.1); Sodium Level 140 mmol/L (136-145)
[2020-10-28 12:53] LABS: Bacteria 0 SEEN /hpf (None Seen); Mucous, Urine 0 SEEN /hpf (<or=2+); Red Blood Cells-Urine 0 SEEN /hpf (0-5); Squamous Epithelial Cells - UA 0 SEEN /hpf (5-10); White Blood Cells 0 SEEN /hpf (0-5)
[2020-10-28 12:54] LABS: Color, Urine Yellow (Yellow); Glucose, Dipstick Normal (Normal); Ketone-Dipstick Negative (Negative); Leukocyte Esterase-Dipstick Negative /ul (Negative); Nitrite-Dipstick Negative (Negative); Occult Blood-Urine Negative /ul (Negative); Protein-Dipstick Negative (Negative); Urine Bilirubin Dipstick Negative (Negative); Urine Clarity Clear (Clear); Urine Urobilinogen Normal (Normal)
--- NOTE | 2020-10-28 14:59 | PCM.HP.STD ---
HPI - General General Date of Admission: 10/28/20 HPI Narrative ATIF JHAVERI, is a 85 F with an extensive PMH as outlined who presented via the ED on 10/28/2020 with a complaint of multiple unwitnessed mechanical fall in assisted living facility, with resultant lower extremity injury. She was also noted to be a bit more confused than usual.She was noted to be unable to walk; Daughter was by her bedside to give the history due to patient's dementia. Patien is on coumadin for afib. Review of systems was otherwise negative. Imaging showed a distal nondisplaced fracture of the distal femur. She also appears to have a distal pubic rami fracture. ED discussed with orthopedics (Dr Hayes) who advised conservative management. She has been admitted to be managed for debility due to multiple mechanical falls and distal nondisplaced femoral fracture. [facility] Medical History (Updated 10/28/20 @ 14:[address] Josef Champagne MD) Carotid stenosis COPD (chronic obstructive pulmonary disease) Diverticulitis HLD (hyperlipidemia) HTN (hypertension) Hypothyroidism Nonrheumatic mitral valve regurgitation Nonrheumatic tricuspid (valve) insufficiency Osteoarthritis Persistent atrial fibrillation Rheumatoid arthritis TIA (transient ischemic attack) Home Medications aspirin 81 mg PO DAILY@0800 08/14/14 [History Last Taken 10/07/14 08:00] cholecalciferol (vitamin D3) 1,000 unit PO DAILY 08/14/14 [History Last Taken 10/07/14 08:00] levothyroxine 137 mcg PO DAILY 08/14/14 [History Last Taken Unknown] warfarin 5 mg tablet 5 mg PO .COMPLEX 08/11/17 [History Last Taken Unknown] ferrous sulfate 325 mg (65 mg iron) tablet 325 mg PO QDAY tab 11/24/17 [History Last Taken Unknown] multivitamin 1 tab PO QDAY 11/24/17 [History Last Taken Unknown] losartan 100 mg PO DAILY 02/27/19 [History Last Taken Unknown] furosemide 40 mg tablet 40 mg PO QDAY #90 tab 06/21/20 [Rx Last Taken Unknown] buspirone 10 mg PO BID 10/28/20 [History Last Taken Unknown] lorazepam 0.5 mg PO BID 10/28/20 [History Last Taken Unknown] mirtazapine 7.5 mg PO QHS 10/28/20 [History Last Taken Unknown] omeprazole 20 mg PO DAILY 10/28/20 [History Last Taken Unknown] pramipexole 0.125 mg PO QHS 10/28/20 [History Last Taken Unknown] risperidone 0.25 mg PO QHS 10/28/20 [History Last Taken Unknown] Allergy/AdvReac Type Severity Reaction Status Date / Time diclofenac sodium Allergy Unknown Verified 10/28/20 11:46 [From Voltaren] rofecoxib [From Vioxx] Allergy Unknown Verified 10/28/20 11:46 cashews Allergy Mild Itching Uncoded 10/28/20 11:46 Family History Father Heart disease Mother CVA (cerebral vascular accident) Hypertension Surgical History History of bilateral knee replacement History of delivery History of tonsillectomy History of total hysterectomy Social History Smoking Status: Never smoker alcohol intake: never substance use type: does not use ROS Constitutional Constitutional: Reports fatigue, malaise and weakness; Denies anorexia, change in weight, chills or fever(s) Eyes Eyes: Denies blurry vision or double vision ENT HEENT: Denies abnormal hearing Cardiovascular Cardiovascular: Denies chest pain, dyspnea on exertion, edema, lightheadedness, orthopnea, palpitations, paroxysmal nocturnal dyspnea, rapid heart rate or syncope Respiratory/Chest Respiratory/Chest: Denies cough, dyspnea, productive cough, shortness of breath at rest or shortness of breath with exertion Gastrointestinal Gastrointestinal: Denies abdominal pain, constipation, diarrhea, dyspepsia, loose stools, melena, nausea or vomiting Genitourinary Genitourinary: Denies burning urination or dysuria Musculoskeletal Musculoskeletal: Reports joint pain; Denies back pain, joint stiffness, joint swelling, myalgias or neck pain Neurologic Neurologic: Reports abnormal gait; Denies confusion, dizziness, focal weakness, seizures or syncope Psychiatric Psychiatric: Denies anxiety Endocrine Endocrinology: Denies change in body appearance Hematologic/Lymphatic Hematologic/Lymphatic: Denies anemia Vital Signs Vital Signs Vital Signs: 10/28/20 11:40 Temperature 97.9 F Temperature Source Temporal Pulse Rate 59 L Respiratory Rate 16 Blood Pressure 139/79 H Blood Pressure Mean 99 Pulse Ox 96 Oxygen Delivery Method Room Air Weight Weight: 155 lb 13.869 oz Body Mass Index (BMI) 28.5 Physical Exam Const alert Orientation / Consciousness: confused and lethargic HEENT normocephalic, head/scalp atraumatic and hearing grossly normal bilaterally Eyes PERRL, EOMs intact bilaterally and conjunctivae normal Neck no lymphadenopathy and supple Resp normal respiratory effort, no retractions, no use of accessory muscles and clear to auscultation bilaterally Cardio regular rate, regular rhythm, S1 normal heart sound, S2 normal heart sound and no murmurs Extremity Peripheral Pulses: Yes pulses 2+ throughout Skin no rashes or lesions noted Neuro Sensorium / Orientation: awake and alert Psych Psych Narrative: confused Results Lab / Micro Data Result Diagrams: 10/28/20 12:30 10/28/20 12:30 Labs: Laboratory Results - last 24 hr 10/28/20 10/28/20 10/28/20 12:30 12:30 12:50 WBC 6.9 RBC 4.35 Hgb 11.9 L Hct 38.4 MCV 88.3 MCH 27.4 MCHC 31.0 L RDW Std Deviation 47.2 H RDW Coeff of [place] 14.6 Plt Count 233 MPV 9.7 Immature Gran % (Auto) 0.400 Neut % (Auto) 73.8 H Lymph % (Auto) 15.9 L [place] % (Auto) 7.7 Eos % (Auto) 1.9 Baso % (Auto) 0.3 Absolute Neuts (auto) 5.1 Absolute Lymphs (auto) 1.10 Nucleated RBC % 0 Sodium 140 Potassium 3.6 Chloride 104 Carbon Dioxide 29.0 Anion Gap 7 BUN 27 H Creatinine 1.43 H Estim Creat Clear Calc 22.33 Est GFR (MDRD) Af Amer 45 L Est GFR (MDRD) Non-Af 37 L BUN/Creatinine Ratio 18.9 Glucose 94 Calcium 9.5 Urine Color Yellow Urine Clarity Clear Urine pH 6.0 Ur Specific [place] 1.010 Urine Protein Negative Urine Glucose (UA) Normal Urine Ketones Negative Urine Occult Blood Negative Urine Nitrite Negative Urine Bilirubin Negative Urine Urobilinogen Normal Ur Leukocyte Esterase Negative Urine RBC 0 SEEN Urine WBC 0 SEEN Ur Squamous Epith Cells 0 SEEN Urine Bacteria 0 SEEN Urine Mucus 0 SEEN Radiology Impression Ankle X-Ray 10/28/20 11:59 IMPRESSION: No acute fracture. Age-related degenerative and osteoporotic change. Electronically Signed: Jigar Duong MD at 14:00 EDT Tel , Service support , Brain CT 10/28/20 11:59 IMPRESSION: No acute intracranial process identified. Chronic small vessel ischemic gliosis. Individualized dose optimization techniques were used for this CT. at 1409 Reported and signed by: Marva Mercedes MD Electronically Signed: Marva Mercedes MD at 14:08 EDT Tel , Service support , Chest X-Ray 10/28/20 11:59 IMPRESSION: 1. No acute findings. 2. Severe cardiomegaly. 3. Suboptimally evaluated left lower lobe. 4. Severe left shoulder degeneration. . Electronically Signed: Jigar Duong MD at 14:08 EDT Tel , Service support , Hip/Pelvis X-Ray 10/28/20 11:59 IMPRESSION: 1. Intact left hip. 2. Deformity of the pubis, unclear if acute or chronic fracture. Refer to CT pelvis for definitive evaluation. Electronically Signed: Jigar Duong MD at 14:03 EDT Tel , Service support , Knee X-Ray 10/28/20 11:59 IMPRESSION: Normal left knee arthroplasty. Electronically Signed: Jigar Duong MD at 14:04 EDT Tel , Service support , ADDENDUM: 10/28/20 1424 Assessment & Plan Assessment/Plan (1) Closed fracture of distal end of left femur: (2) Fracture of left inferior pubic ramus: (3) Multiple falls: (4) Dementia: PLAN: #Distal left femoral fracture due to mechanical fall Admit to [facility] X-ray showed acute spiral nondisplaced fracture of the left distal femur which is confined to the distribution of the stem of her proximal total knee arthroplasty revision There is also concern for inferior pubic rami fracture. P.o. Tylenol, p.o. oxycodone and IV morphine as needed for pain Consult orthopedics-Dr. Hayes informed by ED PT OT consult. Fall precautions. #Debility due to mechanical fall As above. #History of dementia: Fall precautions #A. fib: On aspirin. Discontinue Coumadin due to recurrent falls. Daughter counseled about discontinuing Coumadin due to increased risk of bleeding and she understands that her mother is at an increased risk of stroke from A. fib but the risk of bleeding from Coumadin outweigh the benefits. #Hypertension: On losartan and Lasix #Hyperlipidemia: On statin #COPD: Not in exacerbation. Breathing treatments bronchodilators #Hypothyroidism: On Synthroid DVT prophylaxis: SCDs. CODE STATUS:DNRCCA per paper work from assisted living, and confirmed with patient's daughter. Charges/Coding Visit Charges OBSV E&M: 41314 Initial observation care L3
[2020-10-28] MEDS: LORazepam 2 MG/ML Syringe 0.5 MG IV (15:17)
[2020-10-28 15:39] VITALS: BP 173/99; PULSE 76; RESP 16; TEMP 37; O2SAT 95
[2020-10-28 16:08] VITALS: BMI 31.3
[2020-10-28] MEDS: 0.9% Normal Saline 1,000 ML 75 ML IV (18:04)
[2020-10-28] MEDS: Morphine 2 MG/ML Syringe IV (18:24)
[2020-10-28] MEDS: 0.9% Saline Lock 10 ML Syringe IV (18:24)
[2020-10-28 19:27] VITALS: BP 151/99; PULSE 69; RESP 18; TEMP 36.4; O2SAT 95
[2020-10-28] MEDS: Acetaminophen 325 MG Tablet 650 MG PO (19:33)
[2020-10-28] MEDS: LORazepam 0.5 MG Tablet PO (19:34)
[2020-10-28] MEDS: oxyCODONE 5 MG Tablet PO (19:34)
[2020-10-28] MEDS: busPIRone 5 MG Tablet 10 MG PO (19:35)
[2020-10-28] MEDS: Mirtazapine 15 MG Tablet 7.5 MG PO (19:35)
[2020-10-28] MEDS: Pramipexole Di-HCl 0.125 MG Tablet PO (19:35)
[2020-10-28] MEDS: RisperiDONE 0.25 MG Tablet PO (19:39)
--- NOTE | 2020-10-28 20:40 | NURSING ---
Pt confused and pulling at tele leads, IV, and purewick. swinging legs out of bed and attempted to get OOB. Removing straps from leg immobilizer. Unable to reorient. Pain medication and HS meds given.
[2020-10-29 03:00] VITALS: BP 155/103; PULSE 88; RESP 20; TEMP 36.8; O2SAT 95
[2020-10-29 03:24] VITALS: PULSE 88
[2020-10-29] MEDS: oxyCODONE 5 MG Tablet PO ×2 (05:08→13:17)
[2020-10-29] MEDS: Levothyroxine 137 MCG Tablet PO (05:09)
[2020-10-29 07:03] LABS: Absolute Lymphocyte Count 0.94 X10^3/uL (0.83-4.51); Absolute Neutrophil Count 4.6 X10^3/uL (2.0-7.7); Basophil# 0.02 X10^3/uL; Basophil% 0.3 % (0-1); Eosinophils% 3.2 % (0-5); Hematocrit 35.4 % (37-47); Lymphocyte # 0.94 X10^3/ul (0.83-4.51); Mean Corp Hgb Conc 31.1 g/dL (32-36); Mean Corpuscular Hgb 27.1 pg (27.0-32.0); Mean Corpuscular Volume 87.2 fL (81-99); Mean Platelet Vol. 9.8 fl (6.2-12.0); Monocyte# 0.49 X10^3/uL; Monocyte% 7.8 % (0-10); NRBC Flagged by Analyzer 0 % (0-5); Neutrophil % 73.5 % (47-70); Platelet Count 214 K/mm3 (150-450); RBC Distribution Width CV 14.7 % (11.6-14.6); RBC Distribution Width SD 47.6 fl (35.1-43.9); Red Blood Count 4.06 M/mm3 (4.2-5.4); White Blood Count 6.3 K/mm3 (4.4-11.0)
[2020-10-29 07:29] VITALS: BP 150/74; PULSE 66; RESP 16; TEMP 36.9; O2SAT 94
[2020-10-29 07:30] LABS: Anion Gap 10 (5-15); BUN 28 mg/dL (7-18); BUN/Creat Ratio 20.4 RATIO (10-20); Calcium,Total 8.9 mg/dL (8.5-10.1); Chloride 105 mmol/L (98-107); Creatinine, Serum 1.37 mg/dL (0.55-1.02); EST Glomerular Filtration Rate 39 mL/min (>60); Est Glom Filt Rate - Afr Amer 47 mL/min (>60); Estimated Creatinine Clearance 32.71 ml/min; Glucose 106 mg/dL (74-106); Potassium 3.6 mmol/L (3.5-5.1); Sodium Level 141 mmol/L (136-145)
[2020-10-29] MEDS: Multivitamins,Therapeutic Tablet 1 TABLET PO (07:58)
[2020-10-29] MEDS: Furosemide 40 MG Tablet PO (10:49)
[2020-10-29] MEDS: busPIRone 5 MG Tablet 10 MG PO ×2 (10:49→20:13)
[2020-10-29] MEDS: LORazepam 0.5 MG Tablet PO ×2 (10:49→20:18)
[2020-10-29] MEDS: Losartan Potassium 100 MG Tablet PO (10:49)
[2020-10-29] MEDS: Cholecalciferol (VIT D3) 25 MCG TABLET (1,000 UNITS) PO (10:50)
[2020-10-29] MEDS: Pantoprazole Sodium 20 MG Tablet PO (10:50)
--- NOTE | 2020-10-29 11:07 | CON.PCM.OR_ITS ---
HPI Consult Data Date of Consult: 10/29/20 HPI Narrative HPI Narrative: Patient lying in bed with her daughter at her side. Patient is demented and confused per her normal baseline. Patient has been a resident of an [facility] several falls. where she has had a history of Yesterday she was brought into the emergency department after a fall and she refused weight-bear. Patient denies any pain at this time. Patient does have a history of a left total hip arthroplasty with a stemmed femoral component. Patient is lying in bed with a knee immobilizer in place that she is bending her knee does not apparently have any obvious pain. A good review of systems and history is unobtainable due to the patient's dementia. Patient has no other complaints of injury at this time.ATIF JHAVERI, is a 85 F who presents [facility] Medical History (Updated 10/29/20 @ 11:13 by Derick PHILLIPS PA-C) Anxiety Carotid stenosis COPD (chronic obstructive pulmonary disease) Diverticulitis HLD (hyperlipidemia) HTN (hypertension) Hypothyroidism Nonrheumatic mitral valve regurgitation Nonrheumatic tricuspid (valve) insufficiency Osteoarthritis Persistent atrial fibrillation Rheumatoid arthritis TIA (transient ischemic attack) Home Medications aspirin 81 mg PO DAILY@0800 08/14/14 [History Last Taken 10/28/20] cholecalciferol (vitamin D3) 1,000 unit PO DAILY 08/14/14 [History Last Taken 10/27/20] levothyroxine 137 mcg PO DAILY 08/14/14 [History Last Taken 10/27/20] warfarin 5 mg tablet 5 mg PO .COMPLEX 08/11/17 [History Last Taken 10/27/20] ferrous sulfate 325 mg (65 mg iron) tablet 325 mg PO QDAY tab 11/24/17 [History Last Taken 10/27/20] multivitamin 1 tab PO QDAY 11/24/17 [History Last Taken 10/28/20] losartan 100 mg PO DAILY 02/27/19 [History Last Taken 10/27/20] furosemide 40 mg tablet 40 mg PO QDAY #90 tab 06/21/20 [Rx Last Taken 10/27/20] buspirone 10 mg PO BID 10/28/20 [History Last Taken 10/28/20 08:00] lorazepam 0.5 mg PO BID 10/28/20 [History Last Taken 10/28/20 08:00] lorazepam 1 mg PO TID PRN 10/28/20 [History Last Taken 10/27/20 02:48] mirtazapine 7.5 mg PO QHS 10/28/20 [History Last Taken 10/27/20] omeprazole 20 mg PO DAILY 10/28/20 [History Last Taken 10/28/20] pramipexole 0.125 mg PO QHS 10/28/20 [History Last Taken 10/27/20] risperidone 0.25 mg PO QHS 10/28/20 [History Last Taken 10/27/20] Allergy/AdvReac Type Severity Reaction Status Date / Time cashew nut Allergy Mild Itching Verified 10/28/20 16:23 diclofenac sodium Allergy Unknown Verified 10/28/20 11:46 [From Voltaren] rofecoxib [From Vioxx] Allergy Unknown Verified 10/28/20 11:46 Family History Father Heart disease Mother CVA (cerebral vascular accident) Hypertension Surgical History (Updated 10/28/20 @ 16:21 by Nicolás Osborne) History of bilateral knee replacement History of delivery History of tonsillectomy History of total hysterectomy S/P hysterectomy Social History Smoking Status: Never smoker alcohol intake: never substance use type: does not use Vital Signs Vital Signs Vital Signs: 10/28/20 11:40 10/28/20 15:39 10/28/20 19:27 Temperature 97.9 F 98.6 F 97.6 F L Temperature Source Temporal Temporal Oral Pulse Rate 59 L 76 69 Respiratory Rate 16 16 18 Blood Pressure 139/79 H 173/99 H 151/99 H Blood Pressure Mean 99 123 116 Blood Pressure Source Monitor Blood Pressure Position Semi-Fowlers Blood Pressure Location Left Arm Pulse Ox 96 95 95 Oxygen Delivery Method Room Air Room Air Room Air 10/29/20 03:00 10/29/20 03:24 10/29/20 07:29 Temperature 98.2 F 98.4 F Temperature Source Temporal Temporal Pulse Rate 88 88 66 Respiratory Rate 20 H 16 Blood Pressure 155/103 H 150/74 H Blood Pressure Mean 120 99 Blood Pressure Source Monitor Monitor Blood Pressure Position Semi-Fowlers Semi-Fowlers Blood Pressure Location Left Arm Right Arm Pulse Ox 95 94 Oxygen Delivery Method Room Air Room Air Weight Weight: 70.3 kg Body Mass Index (BMI) 31.3 Physical Exam Narrative Exam I found a pleasant demented 85-year-old female lying in bed with her daughter at her side. Cranial nerves II through gross intact. Patient obvious signs of trauma to head face neck. Patient good motion of the upper extremities without limitations or indication of pain. She had good lap cutter strength. She had good motion of bilateral hips left right knee and ankle. Exam of the left knee patient did have a knee immobilizer in place which was partially out of place because the patient will not leave the immobilizer intact and is continually changing the position of the knee immobilizer. When this was removed to be adjusted patient did flex her knee to approximately 45 degrees with no apparent pain. The knee is cool to touch nonerythematous without effusion. She has good flexion-extension of the ankle. She has no calf tenderness. Neurovascular is otherwise intact. No other signs of trauma noted to the lower extremities. The imaging studies show patient does have a periprosthetic fracture just proximal to the distal femur, condyles. The stem and component is intact. The spiral fracture does extend up to residential through the femoral stem of her total knee. There is no displacement at this time. No acute bony edema noted. Lab / Micro Data Result Diagrams: 10/29/20 06:55 10/29/20 06:55 Labs: Laboratory Results - last 24 hr 10/28/20 10/28/20 10/28/20 12:30 12:30 12:50 WBC 6.9 RBC 4.35 Hgb 11.9 L Hct 38.4 MCV 88.3 MCH 27.4 MCHC 31.0 L RDW Std Deviation 47.2 H RDW Coeff of Tigre 14.6 Plt Count 233 MPV 9.7 Immature Gran % (Auto) 0.400 Neut % (Auto) 73.8 H Lymph % (Auto) 15.9 L [place] % (Auto) 7.7 Eos % (Auto) 1.9 Baso % (Auto) 0.3 Absolute Neuts (auto) 5.1 Absolute Lymphs (auto) 1.10 Nucleated RBC % 0 Sodium 140 Potassium 3.6 Chloride 104 Carbon Dioxide 29.0 Anion Gap 7 BUN 27 H Creatinine 1.43 H Estim Creat Clear Calc 22.33 Est GFR (MDRD) Af Amer 45 L Est GFR (MDRD) Non-Af 37 L BUN/Creatinine Ratio 18.9 Glucose 94 Calcium 9.5 Urine Color Yellow Urine Clarity Clear Urine pH 6.0 Ur Specific [place] 1.010 Urine Protein Negative Urine Glucose (UA) Normal Urine Ketones Negative Urine Occult Blood Negative Urine Nitrite Negative Urine Bilirubin Negative Urine Urobilinogen Normal Ur Leukocyte Esterase Negative Urine RBC 0 SEEN Urine WBC 0 SEEN Ur Squamous Epith Cells 0 SEEN Urine Bacteria 0 SEEN Urine Mucus 0 SEEN 10/29/20 10/29/20 06:55 06:55 WBC 6.3 RBC 4.06 L Hgb 11.0 L Hct 35.4 L MCV 87.2 MCH 27.1 MCHC 31.1 L RDW Std Deviation 47.6 H RDW Coeff of [place] 14.7 H Plt Count 214 MPV 9.8 Immature Gran % (Auto) 0.200 Neut % (Auto) 73.5 H Lymph % (Auto) 15.0 L [place] % (Auto) 7.8 Eos % (Auto) 3.2 Baso % (Auto) 0.3 Absolute Neuts (auto) 4.6 Absolute Lymphs (auto) 0.94 Nucleated RBC % 0 Sodium 141 Potassium 3.6 Chloride 105 Carbon Dioxide 26.0 Anion Gap 10 BUN 28 H Creatinine 1.37 H Estim Creat Clear Calc 32.71 Est GFR (MDRD) Af Amer 47 L Est GFR (MDRD) Non-Af 39 L BUN/Creatinine Ratio 20.4 H Glucose 106 Calcium 8.9 Urine Color Urine Clarity Urine pH Ur Specific [place] Urine Protein Urine Glucose (UA) Urine Ketones Urine Occult Blood Urine Nitrite Urine Bilirubin Urine Urobilinogen Ur Leukocyte Esterase Urine RBC Urine WBC Ur Squamous Epith Cells Urine Bacteria Urine Mucus Radiology Impression Ankle X-Ray 10/28/20 11:59 IMPRESSION: No acute fracture. Age-related degenerative and osteoporotic change. Electronically Signed: Jigar Duong MD at 14:00 EDT Tel , Service support , Brain CT 10/28/20 11:59 IMPRESSION: No acute intracranial process identified. Chronic small vessel ischemic gliosis. Individualized dose optimization techniques were used for this CT. at 1409 Reported and signed by: Marva Mercedes MD Electronically Signed: Marva Mercedes MD at 14:08 EDT Tel , Service support , Chest X-Ray 10/28/20 11:59 IMPRESSION: 1. No acute findings. 2. Severe cardiomegaly. 3. Suboptimally evaluated left lower lobe. 4. Severe left shoulder degeneration. . Electronically Signed: Jigar Duong MD at 14:08 EDT Tel , Service support , Hip/Pelvis X-Ray 10/28/20 11:59 IMPRESSION: 1. Intact left hip. 2. Deformity of the pubis, unclear if acute or chronic fracture. Refer to CT pelvis for definitive evaluation. Electronically Signed: Jigar Duong MD at 14:03 EDT Tel , Service support , Knee X-Ray 10/28/20 11:59 IMPRESSION: Normal left knee arthroplasty. Electronically Signed: Jigar Duong MD at 14:04 EDT Tel , Service support , ADDENDUM: 10/28/20 1424 Assessment & Plan Assessment/Plan (1) Closed fracture of distal end of left femur: (2) Periprosthetic fracture around internal prosthetic left knee joint, subsequent encounter: PLAN: 1. Continue all pain medications as prescribed 2. Continue DVT prophylaxis as directed by medicine 3. Continue use of knee immobilizer, avoid any bending of the knee. 4. Patient is to remain nonweightbearing with knee immobilizer in place at all times. 5. We will follow with Dr. Chairez in 2 weeks, call for appointment 6. The goal is to immobilize and allow fracture to heal, without surgical intervention. This plan was discussed at length with the patient's daughter 7. Patient can be discharged back to [facility] when cleared by medicine
[2020-10-29] MEDS: Ferrous Sulfate 325 MG Tablet PO (13:15)
[2020-10-29 13:58] VITALS: BP 138/82; PULSE 71; RESP 16; TEMP 36.9; O2SAT 95
--- NOTE | 2020-10-29 14:00 | CASEMGMT ---
Social Work Note Pt is listed as being from [facility]. Pt will likely need SNF as pt has Closed distal left femoral fracture/periprosthetic and Pubic Rami Fracture. Pt is demented and confused at Baseline. SW in to speak with pt's daughter Andreina. Andreina confirms pt came from [facility] and as been there since June 2020. Andreina states before pt was moved to [place], pt was living with her neice. SW spoke with Adnreina about discharge plans and how the recommendation is likely SNF placement. Patient and pt's daughter Andreina was provided a list of SNF providers including quality and resource use data and consistent with the patient?s preferred geographic region, medical needs, and insurance network. Andreina states her choices for SNF are 1. [facility], 2. [facility] and 3. [facility]. SW to fax referrals to SNF. Plan: SNF pending acceptance and pre-cert Shirlene Sow CARBOY FILLER, MOBILE MECHANIC
--- NOTE | 2020-10-29 14:10 | PCM.PN.HOSP ---
Subjective Subjective Patient reports that her pain is controlled. Daughter is at bedside and reports that her mother has high pain tolerance. She is had multiple falls in the last week, 3 that she knows of. At baseline patient has pretty significant dementia. She currently is residing at [place] but the daughter is concerned about discharge and possibly needing placement. Objective Data Objective Data Vital Signs: Vital Signs Temp Pulse Resp BP Pulse Ox 98.4 F 71 16 138/82 H 95 10/29/20 13:58 10/29/20 13:58 10/29/20 13:58 10/29/20 13:58 10/29/20 13:58 Oxygen Delivery Method Room Air Weight: 70.3 kg Body Mass Index (BMI) 31.3 Intake & Output: Intake and Output for Last 24 Hours 10/27/20 10/28/20 10/29/20 23:59 23:59 23:59 Intake Total 301.25 / 451.25 631.25 / 631.25 Balance 301.25 / 451.25 631.25 / 631.25 Lab / Micro Data Result Diagrams: 10/29/20 06:55 10/29/20 06:55 Labs: Laboratory Results - last 24 hr 10/29/20 10/29/20 06:55 06:55 WBC 6.3 RBC 4.06 L Hgb 11.0 L Hct 35.4 L MCV 87.2 MCH 27.1 MCHC 31.1 L RDW Std Deviation 47.6 H RDW Coeff of Tigre 14.7 H Plt Count 214 MPV 9.8 Immature Gran % (Auto) 0.200 Neut % (Auto) 73.5 H Lymph % (Auto) 15.0 L [place] % (Auto) 7.8 Eos % (Auto) 3.2 Baso % (Auto) 0.3 Absolute Neuts (auto) 4.6 Absolute Lymphs (auto) 0.94 Nucleated RBC % 0 Sodium 141 Potassium 3.6 Chloride 105 Carbon Dioxide 26.0 Anion Gap 10 BUN 28 H Creatinine 1.37 H Estim Creat Clear Calc 32.71 Est GFR (MDRD) Af Amer 47 L Est GFR (MDRD) Non-Af 39 L BUN/Creatinine Ratio 20.4 H Glucose 106 Calcium 8.9 Radiography Diagnostic Testing: Radiology Impression Brain CT 10/28/20 11:59 IMPRESSION: No acute intracranial process identified. Chronic small vessel ischemic gliosis. Individualized dose optimization techniques were used for this CT. at 1409 Reported and signed by: Marva Mercedes MD Electronically Signed: Marva Mercedes MD at 14:08 EDT Tel , Service support , Knee X-Ray 10/28/20 11:59 IMPRESSION: Normal left knee arthroplasty. Electronically Signed: Jigar Duong MD at 14:04 EDT Tel , Service support , ADDENDUM: 10/28/20 1424 Physical Exam Const alert and no apparent distress Constitutional Narrative: Older white female sitting up in bed, appears comfortable, daughter at bedside, patient with dementia at baseline Exam Limitations: other limitations HEENT head/scalp atraumatic Head and Scalp: normocephalic Eyes PERRL, EOMs intact bilaterally and conjunctivae normal Neck supple Neck Narrative: Trachea midline Resp normal respiratory effort, no retractions, no use of accessory muscles and clear to auscultation bilaterally Cardio regular rate, regular rhythm, S1 normal heart sound, S2 normal heart sound, no murmurs, no rub, no gallops, no clicks and no JVD GI normal to inspection, nondistended, normoactive bowel sounds, soft to palpation, non-tender and non-distended Extremity Extremity Narrative: Tender at the left knee joint proximally Peripheral Pulses: Yes pulses 2+ throughout Skin no rashes or lesions noted Skin Narrative: Scattered ecchymosis Neuro CN's II-XII intact bilaterally Sensorium / Orientation: awake and alert Assessment & Plan Assessment/Plan (1) Multiple falls: (2) Closed fracture of distal end of left femur: (3) Fracture of left inferior pubic ramus: (4) Persistent atrial fibrillation: (5) HTN (hypertension): QUALIFIERS: Hypertension type: essential hypertension Qualified Code(s): I10 - Essential (primary) hypertension (6) HLD (hyperlipidemia): QUALIFIERS: Hyperlipidemia type: pure hypercholesterolemia Qualified Code(s): E78.00 - Pure hypercholesterolemia, unspecified; E78.0 - Pure hypercholesterolemia (7) COPD (chronic obstructive pulmonary disease): PLAN: Closed distal left femoral fracture/periprosthetic -Continue pain medication as ordered -Continue bowel regimen -Orthopedics has evaluated the patient and is recommending a knee immobilizer at all times -Nonweightbearing left lower extremity -I suspect that this is going to be difficult given the patient's dementia -Patient to follow-up with Dr. Chairez in 2 weeks Inferior pubic rami fracture -Pain management as above -No intervention required History of multiple falls/debility -Continue PT OT -With fall history we will discontinue systemic anticoagulation for atrial fibrillation -At this point the risk of anticoagulation outweighs the benefit -This this was discussed in detail with her daughter and she voiced understanding PAF -Patient is currently in normal sinus rhythm -Coumadin was discontinued as noted above -Continue aspirin Hypertension/hyperlipidemia -Continue losartan and Lasix -Continue statin CHARISMA on CKD stage IIIb -It appears that her baseline creatinine fluctuates but most recently has been between 1.10 and 1.3 -Mildly elevated on admission but trending down -Continue to monitor COPD -Continue as needed bronchodilators Restless leg syndrome -Continue Mirapex Dementia -Continue risperidone -Continue mirtazapine Depression/anxiety -Continue home medication -Would recommend weaning off Ativan--> dose has been cut in half Hypothyroidism -Continue levothyroxine GERD -Continue omeprazole DVT prophylaxis -Start enoxaparin daily CODE STATUS -DNR CCA no intubation -Discussed with daughter today at the bedside
[2020-10-29] MEDS: Mirtazapine 15 MG Tablet 7.5 MG PO (20:13)
[2020-10-29] MEDS: Pramipexole Di-HCl 0.125 MG Tablet PO (20:13)
[2020-10-29] MEDS: RisperiDONE 0.25 MG Tablet PO (20:13)
[2020-10-29 20:31] VITALS: BP 155/105; PULSE 72; RESP 18; TEMP 36.9; O2SAT 94
[2020-10-30 03:03] VITALS: BP 167/67; PULSE 80; RESP 18; TEMP 37; O2SAT 94
[2020-10-30] MEDS: Levothyroxine 137 MCG Tablet PO (06:24)
[2020-10-30 07:00] VITALS: O2SAT 94
[2020-10-30 09:50] VITALS: BP 160/70; PULSE 70; RESP 16; TEMP 36.8; O2SAT 94
[2020-10-30] MEDS: Ferrous Sulfate 325 MG Tablet PO (09:59)
[2020-10-30] MEDS: LORazepam 0.5 MG Tablet PO ×2 (09:59→20:49)
[2020-10-30] MEDS: Furosemide 40 MG Tablet PO (09:59)
[2020-10-30] MEDS: Losartan Potassium 100 MG Tablet PO (09:59)
[2020-10-30] MEDS: Cholecalciferol (VIT D3) 25 MCG TABLET (1,000 UNITS) PO (09:59)
[2020-10-30] MEDS: Pantoprazole Sodium 20 MG Tablet PO (09:59)
[2020-10-30] MEDS: busPIRone 5 MG Tablet 10 MG PO ×2 (10:00→20:49)
[2020-10-30] MEDS: Multivitamins,Therapeutic Tablet 1 TABLET PO (10:00)
[2020-10-30 11:41] LABS: International Normalized Ratio 1.4; Prothrombin Time (Protime)PT. 16.7 SECONDS (11.7-14.9)
--- NOTE | 2020-10-30 12:38 | PN.HOSP_ITS ---
Subjective Subjective Patient with intermittent confusion. Per note SNF acceptance pending and then pre-CERT will be required for discharge. Pain appears to be well controlled. No significant issues overnight. Objective Data Objective Data Vital Signs: Vital Signs Temp Pulse Resp BP Pulse Ox 98.3 F 70 16 160/70 H 94 10/30/20 09:50 10/30/20 09:50 10/30/20 09:50 10/30/20 09:50 10/30/20 09:50 Oxygen Delivery Method Room Air Weight: 70.3 kg Body Mass Index (BMI) 31.3 Intake & Output: Intake and Output for Last 24 Hours 10/28/20 10/29/20 10/30/20 23:59 23:59 23:59 Intake Total 301.25 / 451.25 631.25 / 691.25 560 / 560 Balance 301.25 / 451.25 631.25 / 691.25 560 / 560 Lab / Micro Data Result Diagrams: 10/29/20 06:55 10/29/20 06:55 Labs: Laboratory Results - last 24 hr 10/30/20 10/30/20 06:22 11:10 PT Cancelled 16.7 H INR Cancelled 1.4 Physical Exam Const alert and no apparent distress Constitutional Narrative: Older white female, lying in bed but has slid down and is diagonal in the bed, readjusted by myself and need HEENT head/scalp atraumatic Head and Scalp: normocephalic Eyes PERRL, EOMs intact bilaterally and conjunctivae normal Resp normal respiratory effort, no retractions, no use of accessory muscles and clear to auscultation bilaterally Cardio regular rate, regular rhythm, S1 normal heart sound, S2 normal heart sound, no murmurs, no rub, no gallops, no clicks and no JVD GI normal to inspection, nondistended, normoactive bowel sounds, soft to palpation, non-tender and non-distended Extremity no clubbing, cyanosis or edema Extremity Narrative: Left lower extremity with immobilizer on leg but this has slid down to around her ankle, readjusted and placed appropriately, no ecchymosis at the fracture site Peripheral Pulses: Yes pulses 2+ throughout Skin no rashes or lesions noted, no wounds, skin turgor normal, no jaundice, no petechiae and no mottling Neuro Neuro Narrative: Moves all extremities symmetrically except left lower extremit y Sensorium / Orientation: awake and alert Psych Psych Narrative: Seems a bit more confused today and yelling no when we try to help readjust her in the bed and her immobilizer Assessment & Plan Assessment/Plan (1) Periprosthetic fracture around internal prosthetic left knee joint, subsequent encounter: (2) Fracture of left inferior pubic ramus: (3) Multiple falls: (4) Dementia: PLAN: Closed distal left femoral fracture/periprosthetic -Continue pain medication as ordered -Continue bowel regimen -Orthopedics has evaluated the patient and is recommending a knee immobilizer at all times -Nonweightbearing left lower extremity -I suspect that this is going to be difficult given the patient's dementia -Patient to follow-up with Dr. Chairez in 2 weeks -SNF placement pending--> awaiting acceptance and pre-CERT approval Inferior pubic rami fracture -Pain management as above -No intervention required History of multiple falls/debility -Continue PT OT -With fall history we will discontinue systemic anticoagulation for atrial fibrillation -At this point the risk of anticoagulation outweighs the benefit -This this was discussed in detail with her daughter and she voiced understanding PAF -Patient is currently in normal sinus rhythm -Coumadin was discontinued as noted above -Continue aspirin -INR was within normal range Hypertension/hyperlipidemia -Continue losartan and Lasix -Continue statin CHARISMA on CKD stage IIIb -It appears that her baseline creatinine fluctuates but most recently has been between 1.10 and 1.3 -Mildly elevated on admission but trending down -Continue to monitor -BMP COPD -Continue as needed bronchodilators Restless leg syndrome -Continue Mirapex Dementia -Continue risperidone -Continue mirtazapine Depression/anxiety -Continue home medication -Would recommend weaning off Ativan--> dose has been cut in half Hypothyroidism -Continue levothyroxine GERD -Continue omeprazole DVT prophylaxis -Continue daily enoxaparin CODE STATUS -DNR CCA no intubation Charges/Coding Visit Charges Inpatient E&M: 25599 [facility] L2
[2020-10-30 14:00] VITALS: BP 140/78; PULSE 61; RESP 16; TEMP 36.6; O2SAT 95
--- NOTE | 2020-10-30 14:47 | CASEMGMT ---
Pt screened with [facility] Palliative Care Screening Tool due to strata 3, pt did not meet criteria.
--- NOTE | 2020-10-30 17:40 | CASEMGMT ---
Social Work Note ALY placed a call to [facility] with TCU, confirmed no beds available. ALY placed a call to [facility] and spoke with Dianne in admissions. ALY faxed referral to [facility]. Dianne asked if pt has had COVID vaccinations. SW to check. ALY received call from pt's daughter Andreina requesting update. ALY updated Andreina that [facility] has no beds available, referral was sent to [facility]. ALY informed pt that if [facility] is not able to accept pt then this worker will try her third choice of [facility]. Andreina states she is not sure she would want third choice to be [facility], asked for another SNF list to be provided to her. ALY informed Andreina that this worker will leave list in pt's room. ALY asked Andreina if pt has had COVID vaccinations. Andreina states she signed release form for pt to get COVID vaccination at [facility] so she thinks pt has had COVID vaccinations. ALY placed a call to [facility] and spoke with RN who confirms pt has had COVID vaccinations, copy of card should've been sent to [facility]. SW looked on pt's chart, copy of COVID vaccination card on pt's chart. ALY received call from Dianne at [facility] who states they are not able to accept pt. Andreina is present at [facility]. SW in to speak with Andreina. ALY updated Andreina that [facility] is not able to accept pt. Andreina states next choice is [facility]. ALY placed a call to Angella in admissions at [facility] and provided referral. ALY Faxed referral to [facility]. ALY received call from Angella at [facility] stating they are able to accept pt and will submit for pre-cert. Plan: [facility] pending pre-cert Shirlene Sow PACKAGE CRIMPER, CANDY COOKER HELPER
[2020-10-30 20:04] VITALS: BP 126/68; PULSE 68; RESP 18; TEMP 37.1; O2SAT 95
[2020-10-30] MEDS: Acetaminophen 325 MG Tablet 650 MG PO (20:48)
[2020-10-30] MEDS: RisperiDONE 0.25 MG Tablet PO (20:49)
[2020-10-30] MEDS: Mirtazapine 15 MG Tablet 7.5 MG PO (20:49)
[2020-10-30] MEDS: Pramipexole Di-HCl 0.125 MG Tablet PO (20:49)
[2020-10-31 02:50] VITALS: BP 135/70; PULSE 66; RESP 16; TEMP 36.8; O2SAT 96
[2020-10-31] MEDS: Levothyroxine 137 MCG Tablet PO (06:10)
[2020-10-31 06:56] LABS: Absolute Lymphocyte Count 1.33 X10^3/uL (0.83-4.51); Absolute Neutrophil Count 2.1 X10^3/uL (2.0-7.7); Basophil# 0.03 X10^3/uL; Basophil% 0.7 % (0-1); Eosinophil# 0.32 X10^3/uL; Eosinophils% 7.5 % (0-5); Hematocrit 36.7 % (37-47); Hemoglobin 11.6 g/dL (12.0-15.0); Lymphocyte # 1.33 X10^3/ul (0.83-4.51); Lymphocyte % 31.1 % (19-41); Mean Corp Hgb Conc 31.6 g/dL (32-36); Mean Corpuscular Hgb 27.3 pg (27.0-32.0); Mean Corpuscular Volume 86.4 fL (81-99); Mean Platelet Vol. 9.7 fl (6.2-12.0); Monocyte# 0.47 X10^3/uL; NRBC Flagged by Analyzer 0 % (0-5); Neutrophil % 49.2 % (47-70); Platelet Count 208 K/mm3 (150-450); RBC Distribution Width CV 14.7 % (11.6-14.6); RBC Distribution Width SD 46.7 fl (35.1-43.9); Red Blood Count 4.25 M/mm3 (4.2-5.4); White Blood Count 4.3 K/mm3 (4.4-11.0)
[2020-10-31 07:38] LABS: Anion Gap 5 (5-15); BUN 29 mg/dL (7-18); Calcium,Total 8.8 mg/dL (8.5-10.1); Chloride 107 mmol/L (98-107); Creatinine, Serum 1.32 mg/dL (0.55-1.02); EST Glomerular Filtration Rate 41 mL/min (>60); Est Glom Filt Rate - Afr Amer 49 mL/min (>60); Estimated Creatinine Clearance 33.95 ml/min; Glucose 89 mg/dL (74-106); Potassium 3.8 mmol/L (3.5-5.1); Sodium Level 140 mmol/L (136-145)
[2020-10-31 09:26] VITALS: BP 183/93; PULSE 65; RESP 18; TEMP 37.2; O2SAT 97
[2020-10-31] MEDS: LORazepam 0.5 MG Tablet PO ×2 (09:29→21:54)
[2020-10-31] MEDS: Pantoprazole Sodium 20 MG Tablet PO (09:30)
[2020-10-31] MEDS: Multivitamins,Therapeutic Tablet 1 TABLET PO (09:30)
[2020-10-31] MEDS: busPIRone 5 MG Tablet 10 MG PO ×2 (09:30→21:54)
[2020-10-31] MEDS: Losartan Potassium 100 MG Tablet PO (09:30)
[2020-10-31] MEDS: Cholecalciferol (VIT D3) 25 MCG TABLET (1,000 UNITS) PO (09:30)
[2020-10-31] MEDS: Furosemide 40 MG Tablet PO (09:30)
--- NOTE | 2020-10-31 10:41 | CASEMGMT ---
Social Work Note ALY placed a call to pt's daughter Andreina and updated her that [facility] has accepted pt and pre-cert has been submitted. Andreina asked about [facility]'s visitation policy. ALY informed Andreina that this worker will call [facility] and check and then update Andreina. Andreina states understanding. ALY placed a call to Angella in admissions at [facility] and left message asking about visitation, pt has had COVID vaccinations. ALY received message from [facility] stating since pt has had COVID vaccinations, pt is permitted to have visitors day one and visitation is from 8:00am to 8:00pm. Visits do not need to be scheduled, family can just show up. ALY placed a call to Andreina and updated her on visitation policy at [facility] and that pt will remain at [facility] until pre-cert is obtained. Plan: [facility] pending pre-cert Shirlene Sow INSTRUMENT INSTALLER, GENERAL SCRAP WORKER
[2020-10-31 12:30] VITALS: BP 133/81
--- NOTE | 2020-10-31 13:00 | PN.HOSP_ITS ---
Subjective Subjective No significant issues overnight. Patient is currently sleeping soundly. Objective Data Objective Data Vital Signs: Vital Signs Temp Pulse Resp BP Pulse Ox 99 F 65 18 183/93 H 97 10/31/20 09:26 10/31/20 09:26 10/31/20 09:26 10/31/20 09:26 10/31/20 09:26 Oxygen Delivery Method Room Air Weight: 70.3 kg Body Mass Index (BMI) 31.3 Intake & Output: Intake and Output for Last 24 Hours 10/29/20 10/30/20 10/31/20 23:59 23:59 23:59 Intake Total 631.25 / 691.25 910 / 1060 150 / 150 Balance 631.25 / 691.25 910 / 1060 150 / 150 Lab / Micro Data Result Diagrams: 10/31/20 06:50 10/31/20 06:50 Labs: Laboratory Results - last 24 hr 10/31/20 10/31/20 06:50 06:50 WBC 4.3 L RBC 4.25 Hgb 11.6 L Hct 36.7 L MCV 86.4 MCH 27.3 MCHC 31.6 L RDW Std Deviation 46.7 H RDW Coeff of Tigre 14.7 H Plt Count 208 MPV 9.7 Immature Gran % (Auto) 0.500 Neut % (Auto) 49.2 Lymph % (Auto) 31.1 Hoke % (Auto) 11.0 H Eos % (Auto) 7.5 H Baso % (Auto) 0.7 Absolute Neuts (auto) 2.1 Absolute Lymphs (auto) 1.33 Nucleated RBC % 0 Sodium 140 Potassium 3.8 Chloride 107 Carbon Dioxide 28.0 Anion Gap 5 BUN 29 H Creatinine 1.32 H Estim Creat Clear Calc 33.95 Est GFR (MDRD) Af Amer 49 L Est GFR (MDRD) Non-Af 41 L BUN/Creatinine Ratio 22.0 H Glucose 89 Calcium 8.8 Physical Exam Const Constitutional Narrative: Sleeping elderly white female, lying in bed, appears comfortable, brace on left lower extremity HEENT head/scalp atraumatic Head and Scalp: normocephalic Resp normal respiratory effort, no retractions, no use of accessory muscles and clear to auscultation bilaterally Auscultation: Negative for crackles, rales, rhonchi or wheezes Cardio regular rate, regular rhythm, S1 normal heart sound, S2 normal heart sound, no murmurs, no rub, no gallops, no clicks and no JVD GI normal to inspection, nondistended, normoactive bowel sounds, soft to palpation, non-tender and non-distended Extremity Extremity Narrative: Left lower extremity in straight leg brace, good cap refill, no cyanosis, clubbing, or edema Peripheral Pulses: Yes pulses 2+ throughout Assessment & Plan Assessment/Plan (1) Periprosthetic fracture around internal prosthetic left knee joint, subsequ ent encounter: (2) Fracture of left inferior pubic ramus: (3) Multiple falls: (4) Dementia: PLAN: Closed distal left femoral fracture/periprosthetic -Continue pain medication as ordered -Continue bowel regimen--> add scheduled MiraLAX as patient has not had a bowel movement -Orthopedics has evaluated the patient and is recommending a knee immobilizer at all times -Nonweightbearing left lower extremity -I suspect that this is going to be difficult given the patient's dementia -Patient to follow-up with Dr. Chairez in 2 weeks -SNF placement pending--> patient has been accepted at [facility] and pre-CERT is pending Inferior pubic rami fracture -Pain management as above -No intervention required History of multiple falls/debility -Continue PT OT -With fall history we will discontinue systemic anticoagulation for atrial fibrillation -At this point the risk of anticoagulation outweighs the benefit -This this was discussed in detail with her daughter and she voiced understanding PAF -Patient is currently in normal sinus rhythm -Coumadin was discontinued as noted above -Continue aspirin Mild anemia -Hemoglobin has been stable since admission -No further CBC required unless patient has obvious bleeding or becomes hemodyna mically unstable Hypertension/hyperlipidemia -Continue losartan and Lasix -Continue statin CHARISMA on CKD stage IIIb -It appears that her baseline creatinine fluctuates but most recently has been between 1.10 and 1.3 -Mildly elevated on admission but trending down -Continue to monitor -BMP COPD -Continue as needed bronchodilators Restless leg syndrome -Continue Mirapex Dementia -Continue risperidone -Continue mirtazapine Depression/anxiety -Continue home medication -Would recommend weaning off Ativan--> dose has been cut in half Hypothyroidism -Continue levothyroxine GERD -Continue omeprazole DVT prophylaxis -Continue daily enoxaparin CODE STATUS -DNR CCA no intubation Charges/Coding Visit Charges Inpatient E&M: 79088 Subs Hosp L2
[2020-10-31 14:59] VITALS: BP 127/60; PULSE 63; RESP 18; TEMP 36.6; O2SAT 92
[2020-10-31] MEDS: Ferrous Sulfate 325 MG Tablet PO (15:01)
[2020-10-31] MEDS: Acetaminophen 325 MG Tablet 650 MG PO (16:23)
[2020-10-31 20:00] VITALS: BP 177/96; PULSE 65; RESP 18; TEMP 37; O2SAT 93
[2020-10-31] MEDS: Mirtazapine 15 MG Tablet 7.5 MG PO (21:54)
[2020-10-31] MEDS: RisperiDONE 0.25 MG Tablet PO (21:54)
[2020-10-31] MEDS: Pramipexole Di-HCl 0.125 MG Tablet PO (21:54)
[2020-10-31 22:00] VITALS: BP 144/88; PULSE 64; RESP 18; TEMP 36.8; O2SAT 94
--- NOTE | 2020-11-01 03:38 | NURSING ---
Patient set of bed alarm, staff responded, patient had legs hanging out of bed. Patient very confused and restless at this time. Staff repositioned patient in bed. Leilani care performed at this time. Patient yelling at staff, staff unable to redirect patient. Resisting care. Attempted to distract with little success. Patient attempting to take off knee immobilizer, hospital pants placed on patient at this time. This RN attempted at take patients VS on 2 separate occasions and patient restless and unable to cooperate or lay still for VS to be taken. Bed exit set. Patient talking to self. Will continue to monitor and attempt VS later. stamp classifier aware.
[2020-11-01] MEDS: Levothyroxine 137 MCG Tablet PO (04:29)
--- NOTE | 2020-11-01 04:29 | NURSING ---
THis RN attempted to given patient Tylenol, patient spit out the Tylenol and threw them on the ground.
[2020-11-01 06:53] VITALS: O2SAT 95
[2020-11-01 08:41] VITALS: BP 115/59; PULSE 64; RESP 18; TEMP 36.9; O2SAT 92
[2020-11-01] MEDS: Multivitamins,Therapeutic Tablet 1 TABLET PO (08:44)
[2020-11-01] MEDS: Cholecalciferol (VIT D3) 25 MCG TABLET (1,000 UNITS) PO (08:44)
[2020-11-01] MEDS: Polyethylene Glycol 3350 17 GM PACKET PO (08:45)
[2020-11-01] MEDS: Losartan Potassium 100 MG Tablet PO (08:45)
[2020-11-01] MEDS: amLODIPine 5 MG Tablet PO (08:45)
[2020-11-01] MEDS: Furosemide 40 MG Tablet PO (08:45)
[2020-11-01] MEDS: busPIRone 5 MG Tablet 10 MG PO ×2 (08:45→21:06)
[2020-11-01] MEDS: Pantoprazole Sodium 20 MG Tablet PO (08:45)
[2020-11-01] MEDS: LORazepam 0.5 MG Tablet PO ×2 (08:48→21:06)
[2020-11-01 08:50] VITALS: PULSE 68
--- NOTE | 2020-11-01 12:45 | CASEMGMT ---
Addendum entered by Shirlene Sow 11/01/20 16:21: SW updated pt's daughter Andreina that pre-cert is still pending. Andreina states understanding. Addendum entered by Shirlene Sow 11/01/20 14:13: SW placed a call to Angella at [facility]. Pre-cert is still pending. Original Note: Social Work Note ALY faxed updated clinicals including pt's COVID vaccination card to [facility]. Plan: [facility] pending pre-cert Shirlene Sow DRAG CAR RACER, DIRECT CUSTOMER SERVICE REPRESENTATIVE
[2020-11-01] MEDS: Ferrous Sulfate 325 MG Tablet PO (13:38)
--- NOTE | 2020-11-01 15:08 | PN.HOSP_ITS ---
Subjective Subjective No issues overnight. Patient is sitting up in bed waiting to eat breakfast. Calm. Awaiting insurance approval for discharge to [facility] facility. Objective Data Objective Data Vital Signs: Vital Signs Temp Pulse Resp BP Pulse Ox 98.5 F 68 18 115/59 L 92 11/01/20 08:41 11/01/20 08:50 11/01/20 08:41 11/01/20 08:41 11/01/20 08:41 Oxygen Delivery Method Room Air Weight: 70.3 kg Body Mass Index (BMI) 31.3 Intake & Output: Intake and Output for Last 24 Hours 10/30/20 10/31/20 11/01/20 23:59 23:59 23:59 Intake Total 910 / 1060 350 / 350 Output Total 400 / 400 Balance 910 / 1060 -50 / -50 Lab / Micro Data Result Diagrams: 10/31/20 06:50 10/31/20 06:50 Physical Exam Const alert and no apparent distress Constitutional Narrative: Sleeping elderly white female, lying in bed, appears comfortable, brace on left lower extremity Orientation / Consciousness: confused and lethargic Exam Limitations: other limitations HEENT normocephalic, head/scalp atraumatic and hearing grossly normal bilaterally Head and Scalp: normocephalic Neck Neck Narrative: Trachea midline Resp normal respiratory effort, no retractions, no use of accessory muscles and clear to auscultation bilaterally Auscultation: Negative for crackles, rales, rhonchi or wheezes Cardio regular rate, regular rhythm, S1 normal heart sound, S2 normal heart sound, no murmurs, no rub, no gallops, no clicks and no JVD GI normal to inspection, nondistended, normoactive bowel sounds, soft to palpation, non-tender and non-distended Extremity no clubbing, cyanosis or edema Extremity Narrative: Left lower extremity in straight leg brace, good cap refill, no cyanosis, clubbing, or edema Skin Skin Narrative: Scattered ecchymosis Neuro CN's II-XII intact bilaterally Neuro Narrative: Moves all extremities symmetrically except left lower extremity due to immobilization Sensorium / Orientation: awake and alert Psych Psych Narrative: Confused but very pleasant Assessment & Plan Assessment/Plan (1) Periprosthetic fracture around internal prosthetic left knee joint, subsequent encounter: (2) Fracture of left inferior pubic ramus: (3) Multiple falls: (4) Dementia: PLAN: Closed distal left femoral fracture/periprosthetic -Continue pain medication as ordered -Continue bowel regimen--> continue scheduled MiraLAX -No BM documented -Orthopedics has evaluated the patient and is recommending a knee immobilizer at all times -Nonweightbearing left lower extremity -I suspect that this is going to be difficult given the patient's dementia -Patient to follow-up with Dr. Chairez in 2 weeks -SNF placement pending--> patient has been accepted at [facility] and pre-CERT remains pending Inferior pubic rami fracture -Pain management as above -No intervention required History of multiple falls/debility -Continue PT OT -With fall history we will discontinue systemic anticoagulation for atrial fibrillation -At this point the risk of anticoagulation outweighs the benefit -This this was discussed in detail with her daughter and she voiced understanding PAF -Patient is currently in normal sinus rhythm -Coumadin was discontinued as noted above -Continue aspirin Mild anemia -Hemoglobin has been stable since admission -No further CBC required unless patient has obvious bleeding or becomes hemodynamically unstable Hypertension/hyperlipidemia -Continue losartan and Lasix -Continue statin CHARISMA on CKD stage IIIb -It appears that her baseline creatinine fluctuates but most recently has been between 1.10 and 1.3 -Mildly elevated on admission but trending down -Continue to monitor -BMP COPD -Continue as needed bronchodilators Restless leg syndrome -Continue Mirapex Dementia -Continue risperidone -Continue mirtazapine Depression/anxiety -Continue home medication -Would recommend weaning off Ativan--> dose has been cut in half Hypothyroidism -Continue levothyroxine GERD -Continue omeprazole DVT prophylaxis -Continue daily enoxaparin CODE STATUS -DNR CCA no intubation Charges/Coding Visit Charges Inpatient E&M: 90746 Subs Hosp L2
[2020-11-01 16:36] VITALS: BP 137/68; PULSE 66; RESP 20; TEMP 36.7; O2SAT 98
[2020-11-01] MEDS: Acetaminophen 325 MG Tablet 650 MG PO (17:00)
[2020-11-01 19:37] VITALS: BP 100/68; PULSE 74; RESP 18; TEMP 36.8; O2SAT 92
[2020-11-01] MEDS: RisperiDONE 0.25 MG Tablet PO (21:06)
[2020-11-01] MEDS: Mirtazapine 15 MG Tablet 7.5 MG PO (21:06)
[2020-11-01] MEDS: Pramipexole Di-HCl 0.125 MG Tablet PO (21:06)
--- NOTE | 2020-11-02 02:34 | NURSING ---
Patient has been resting quietly and soundly, will attempt VS when patient is more awake. Bed exit set.
[2020-11-02 05:00] VITALS: BP 147/85; PULSE 79; RESP 18; TEMP 36.8; O2SAT 96
[2020-11-02] MEDS: Acetaminophen 325 MG Tablet 650 MG PO (05:08)
[2020-11-02] MEDS: Levothyroxine 137 MCG Tablet PO (05:08)
[2020-11-02 08:00] VITALS: O2SAT 94
[2020-11-02] MEDS: Furosemide 40 MG Tablet PO (10:04)
[2020-11-02] MEDS: amLODIPine 5 MG Tablet PO (10:04)
[2020-11-02] MEDS: Pantoprazole Sodium 20 MG Tablet PO (10:04)
[2020-11-02] MEDS: Cholecalciferol (VIT D3) 25 MCG TABLET (1,000 UNITS) PO (10:04)
[2020-11-02] MEDS: busPIRone 5 MG Tablet 10 MG PO (10:04)
[2020-11-02] MEDS: Losartan Potassium 100 MG Tablet PO (10:04)
[2020-11-02] MEDS: Ferrous Sulfate 325 MG Tablet PO (10:04)
[2020-11-02] MEDS: Polyethylene Glycol 3350 17 GM PACKET PO (10:04)
[2020-11-02] MEDS: Multivitamins,Therapeutic Tablet 1 TABLET PO (10:04)
[2020-11-02 10:15] VITALS: BP 104/68; PULSE 72; RESP 16; TEMP 36.8; O2SAT 98
[2020-11-02] MEDS: LORazepam 0.5 MG Tablet PO (10:27)
--- NOTE | 2020-11-02 11:50 | DS.PCM_ITS ---
Providers Date of Admission: 10/28/20 Primary Care Physician: Dr. Nando Lopez MD Consultations 10/28/20 16:13 Consult: Orthopedics Routine Consulting Provider: Herbert Hayes Reason for Consult: distal left femoral fracture EMERGENT Consult: No MD Notified: Yes Date Notified: 10/28/20 Time Notified: 15:15 Method of Notification: Text Reason For Visit: MECHANICAL FALLS Diagnosis Discharge Diagnosis (1) Periprosthetic fracture around internal prosthetic left knee joint, subsequent encounter: Status: Acute Code(s): M97.12XD - Periprosthetic fracture around internal prosthetic left knee joint, subsequent encounter (2) Fracture of left inferior pubic ramus: Status: Acute Code(s): S32.592A - Other specified fracture of left pubis, initial encounter for closed fracture Medications at Discharge Home Medications aspirin 81 mg PO DAILY@0800 08/14/14 cholecalciferol (vitamin D3) 1,000 unit PO DAILY 08/14/14 levothyroxine 137 mcg PO DAILY 08/14/14 ferrous sulfate 325 mg (65 mg iron) tablet 325 mg PO QDAY tab 11/24/17 multivitamin 1 tab PO QDAY 11/24/17 losartan 100 mg PO DAILY 02/27/19 furosemide 40 mg tablet 40 mg PO QDAY #90 tab 06/21/20 buspirone 10 mg PO BID 10/28/20 mirtazapine 7.5 mg PO QHS 10/28/20 omeprazole 20 mg PO DAILY 10/28/20 pramipexole 0.125 mg PO QHS 10/28/20 risperidone 0.25 mg PO QHS 10/28/20 amlodipine 5 mg PO DAILY #0 tab 11/02/20 food supplemt, lactose-reduced [Ensure Enlive] 120 ml PO 4X/DAY #0 ml 11/02/20 lorazepam 0.5 mg PO BID #2 tab 11/02/20 oxycodone 5 mg PO Q4H PRN PRN 1 Days #6 tab 11/02/20 Hospital Course Operations None Procedures None Summary of Care Provided Minutes Spent on Discharge: 38 Hospital Course: Mrs. Apodaca is an 85-year-old white female who presented to the emergency department at [facility] on 10/28/2020 after a fall at the assisted living facility at which she is residing. She has evidently had multiple unwitnessed mechanical falls but has now sustained a left lower extremity injury resulting in pain at the knee joint. The patient has pretty significant dementia and presented with her daughter who gave history. Her vital signs and laboratory data were stable in the emergency department but imaging revealed a distal nondisplaced fracture of the left femur just proximal to her prosthesis and a pubic rami fracture on the left. The emergency department discussed the case with Dr. Hayes who is on for orthopedics and advised conservative management. The patient was evaluated by orthopedics during her admission and it was recommended that she continued conservative management. She was placed in a left lower extremity straight leg brace and made nonweightbearing on that joint with recommended follow-up to Dr. Chairez in 2 weeks. Her pain was adequately controlled during her hospitalization. She garcia d ongoing confusion which was baseline for her dementia. Upon admission and following there were conversations with her daughter with regards to her Coumadin. It was felt that with her frequent falling, impulsiveness, and dementia that continuing Coumadin was a greater risk than benefit at this time and it was discontinued. She had been living at an assisted living facility but required increased care and mobility limitations and therefore was not able to go back to her assisted living facility. [facility] on 11/02/2020. She is to follow-up with Dr. Chairez in 2 weeks in the outpatient setting. Physical Exam Const alert and no apparent distress Constitutional Narrative: Sleeping elderly white female, lying in bed, appears comfortable, brace on left lower extremity General Appearance: cooperative and comfortable Orientation / Consciousness: awake and confused Exam Limitations: other limitations HEENT normocephalic, head/scalp atraumatic and hearing grossly normal bilaterally Eyes PERRL, EOMs intact bilaterally and conjunctivae normal Neck supple Neck Narrative: Trachea midline Resp normal respiratory effort, no retractions, no use of accessory muscles and clear to auscultation bilaterally Auscultation: Negative for crackles, rales, rhonchi or wheezes Cardio regular rate, regular rhythm, S1 normal heart sound, S2 normal heart sound, no murmurs, no rub, no gallops, no clicks and no JVD GI normal to inspection, nondistended, normoactive bowel sounds, soft to palpation, non-tender and non-distended Extremity no clubbing, cyanosis or edema Extremity Narrative: Left lower extremity in straight leg brace, good cap refill, no cyanosis, clubbing, or edema Skin no rashes or lesions noted, no wounds, skin turgor normal, no jaundice, no petechiae and no mottling Skin Narrative: Scattered ecchymosis Neuro CN's II-XII intact bilaterally Neuro Narrative: Moves all extremities symmetrically except left lower extremity due to immobilization Sensorium / Orientation: awake and alert Psych Psych Narrative: Confused but very pleasant Weight / BMI Weight Weight: 70.3 kg Body Mass Index (BMI) 31.3 ABG / Lab / Microbiology Data Result Diagrams: 10/31/20 06:50 10/31/20 06:50 Meaningful Use Info Meaningful Use Diagnoses (Choose all that apply): None applicable Discharge Plan Admission Admit Date/Time: 10/28/20 15:15 Primary Reason for Your Visit: Fall/L LE Pain Attending Provider: Isaura Hopkins Primary Care Provider: Nando Lopez Consulting Providers: Herbert Hayes Discharge Orders/Prescriptions Prescriptions: New lorazepam 0.5 mg Tablet 0.5 mg PO BID Qty: 2 RF: 0 oxycodone 5 mg Tablet 5 mg PO Q4H PRN PRN (Reason: Pain Score 4-5) 1 Days Qty: 6 RF: 0 amlodipine 5 mg Tablet 5 mg PO DAILY Qty: 0 RF: 0 Ensure Enlive 0.08 gram-1.5 kcal/mL Liquid 120 ml PO 4X/DAY Qty: 0 RF: 0 Continued multivitamin [Daily Multi-Vitamin] tablet 1 tab PO QDAY RF: 0 ferrous sulfate [FeroSul] 325 mg (65 mg iron) tablet 325 mg PO QDAY RF: 0 aspirin 81 MG tablet,chewable 81 mg PO DAILY@0800 RF: 0 cholecalciferol (vitamin D3) 1,000 UNIT tablet 1,000 unit PO DAILY RF: 0 levothyroxine 112 MCG tablet 137 mcg PO DAILY RF: 0 losartan 100 MG tablet 100 mg PO DAILY RF: 0 risperidone 0.25 mg tablet 0.25 mg PO QHS RF: 0 buspirone 10 mg tablet 10 mg PO BID RF: 0 pramipexole 0.125 mg tablet 0.125 mg PO QHS RF: 0 omeprazole 20 mg capsule,delayed release(DR/EC) 20 mg PO DAILY RF: 0 mirtazapine 7.5 mg tablet 7.5 mg PO QHS RF: 0 furosemide [Lasix] 40 mg tablet 40 mg PO QDAY Qty: 90 RF: 3 Discontinued warfarin 5 mg tablet 5 mg PO .COMPLEX RF: 0 lorazepam 1 mg tablet 0.5 mg PO BID RF: 0 lorazepam 1 mg Tablet 1 mg PO TID PRN (Reason: Anxiety) RF: 0 Referrals / Follow Up: Nando Lopez MD [Primary Care Provider] - Alexsander Chairez MD [STAFF PHYSICIAN] - Within 2 Weeks (Left femoral fracture) Disposition Disposition (needs filled in before D/C Order can be placed): [facility] Charges/Coding Visit Charges Inpatient E&M: 03444 SNF Disch >30 Min
--- NOTE | 2020-11-02 12:21 | PCM.TXEXTCAR ---
Diet 11/01/20 14:56 Diet: Regular - No Added Salt Is pt able to select menu?: No Routine Orders/Code Status Enema Frequency: Daily PRN Suppository Type: Dulcolax 10mg O2 Frequency: PRN Keep PO Greater than or Equal to (%): 92 Routine Lab Work: CBC and BMP Code Status: DNRCC-A (No intubation) Suggestions for Active Care Hours to sit in a chair: 6 Times a day to sit in chair: 3 Therapies Weight Bearing: Non weight bearing (Left lower extremity) Extremity Affected:: Left Lower Physical Therapy: Eval and Treat Occupational Therapy: Eval and Treat Problem/Diagnosis (1) Periprosthetic fracture around internal prosthetic left knee joint, subsequent encounter: Status: Acute (2) Fracture of left inferior pubic ramus: Status: Acute Allergies/Procedures Done in Hospital Allergies cashew nut Allergy (Mild, Verified 10/28/20 16:23) Itching diclofenac sodium [From Voltaren] Allergy (Verified 10/28/20 11:46) Unknown rofecoxib [From Vioxx] Allergy (Verified 10/28/20 11:46) Unknown Procedures: None Type of Care/Length of Stay Estimated LOS: More Than 30 Days Type of Care Needed: Skilled Rehab Potential: Fair Prognosis: Fair Additional Orders/Day of Discharge Additional Orders: Left lower extremity straight leg brace at all times Day of Discharge: 11/02/20 Dietary and Speech Recommendations Dietitian Recommendations/Changes: will liberalize diet to regular no added salt; continue ensure w/ medpass Discharge Plan Admission Admit Date/Time: 10/28/20 15:15 Primary Reason for Your Visit: Fall/L LE Pain Attending Provider: Isaura Hopkins Primary Care Provider: Nando Lopez Consulting Providers: Herbert Hayes Discharge Orders/Prescriptions Prescriptions: New lorazepam 0.5 mg Tablet 0.5 mg PO BID Qty: 2 RF: 0 oxycodone 5 mg Tablet 5 mg PO Q4H PRN PRN (Reason: Pain Score 4-5) 1 Days Qty: 6 RF: 0 amlodipine 5 mg Tablet 5 mg PO DAILY Qty: 0 RF: 0 Ensure Enlive 0.08 gram-1.5 kcal/mL Liquid 120 ml PO 4X/DAY Qty: 0 RF: 0 Continued multivitamin [Daily Multi-Vitamin] tablet 1 tab PO QDAY RF: 0 ferrous sulfate [FeroSul] 325 mg (65 mg iron) tablet 325 mg PO QDAY RF: 0 aspirin 81 MG tablet,chewable 81 mg PO DAILY@0800 RF: 0 cholecalciferol (vitamin D3) 1,000 UNIT tablet 1,000 unit PO DAILY RF: 0 levothyroxine 112 MCG tablet 137 mcg PO DAILY RF: 0 losartan 100 MG tablet 100 mg PO DAILY RF: 0 risperidone 0.25 mg tablet 0.25 mg PO QHS RF: 0 buspirone 10 mg tablet 10 mg PO BID RF: 0 pramipexole 0.125 mg tablet 0.125 mg PO QHS RF: 0 omeprazole 20 mg capsule,delayed release(DR/EC) 20 mg PO DAILY RF: 0 mirtazapine 7.5 mg tablet 7.5 mg PO QHS RF: 0 furosemide [Lasix] 40 mg tablet 40 mg PO QDAY Qty: 90 RF: 3 Discontinued warfarin 5 mg tablet 5 mg PO .COMPLEX RF: 0 lorazepam 1 mg tablet 0.5 mg PO BID RF: 0 lorazepam 1 mg Tablet 1 mg PO TID PRN (Reason: Anxiety) RF: 0 Referrals / Follow Up: Nando Lopez MD [Primary Care Provider] - Alexsander Chairez MD [STAFF PHYSICIAN] - Within 2 Weeks (Left femoral fracture) Disposition Disposition (needs filled in before D/C Order can be placed): [facility]
--- NOTE | 2020-11-02 14:00 | CASEMGMT ---
Social Work Note ALY received message from Angella at [facility] stating pre-cert has been obtained and pt can discharge to [facility] today. SW updated physician. ALY completed [facility] in HENS. ALY faxed completed discharge paperwork to Angella at [facility] including transfer to extended care facility, signed medication list, any scripts, COVID test, COVID tool, and HENS. Original in SNF folder and copy on pt's chart. ALY accessed trip assist and arranged transportation via cot for 2:30pm. Transportation form completed and placed on SNF folder and copy on pt's chart. ALY placed a call to Angella at [facility] and left message updating her on transportation time. ALY updated RN on transportation. RN placed a call to pt's daughter Andreina and updated her on approval to [facility], discharge today and transportation time. Plan: [facility] skilled today with Physician's transporting pt via cot at 2:30pm Shirlene Sow MSW, ENERGY AND CONSERVATION TECHNICIAN
--- NOTE | 2020-11-02 14:16 | PHA.DC.MR ---
Pharmacy Service has performed discharge medication reconciliation for this patient. The patient's discharge medication list was reviewed for discrepancies and discrepancies were resolved. Home Medications aspirin 81 mg PO DAILY@0800 08/14/14 cholecalciferol (vitamin D3) 1,000 unit PO DAILY 08/14/14 levothyroxine 137 mcg PO DAILY 08/14/14 ferrous sulfate 325 mg (65 mg iron) tablet 325 mg PO QDAY tab 11/24/17 multivitamin 1 tab PO QDAY 11/24/17 losartan 100 mg PO DAILY 02/27/19 furosemide 40 mg tablet 40 mg PO QDAY #90 tab 06/21/20 buspirone 10 mg PO BID 10/28/20 mirtazapine 7.5 mg PO QHS 10/28/20 omeprazole 20 mg PO DAILY 10/28/20 pramipexole 0.125 mg PO QHS 10/28/20 risperidone 0.25 mg PO QHS 10/28/20 amlodipine 5 mg PO DAILY #0 tab 11/02/20 food supplemt, lactose-reduced [Ensure Enlive] 120 ml PO 4X/DAY #0 ml 11/02/20 lorazepam 0.5 mg PO BID #2 tab 11/02/20 oxycodone 5 mg PO Q4H PRN PRN 1 Days #6 tab 11/02/20
[2020-11-02 14:25] VITALS: BP 109/62; PULSE 57; RESP 16; TEMP 37.2; O2SAT 94
--- NOTE | 2020-11-02 16:51 | NURSING ---
1410: report called to Richard at [facility]. updated on pt transport time
== END 2020-11-02 15:00 | DRG 560 ==
LOC: ED 14:55 → MS3 10-29 07:07
PROVIDERS: Admitting Provider Student in an Organized Health Care Education/Training Program; Emergency Provider Emergency Medicine; PCP Family Medicine; Visit Provider Internal Medicine
DX: M97.12XA Periprosthetic fracture around internal prosthetic left knee joint, initial encounter (principal); M06.9 Rheumatoid arthritis, unspecified; S32.592A Other specified fracture of left pubis, initial encounter for closed fracture; F03.90 Unspecified dementia, unspecified severity, without behavioral disturbance, psychotic disturbance, mood disturbance, and anxiety; J44.9 Chronic obstructive pulmonary disease, unspecified; I48.19 Other persistent atrial fibrillation; N18.32 Chronic kidney disease, stage 3b; W19.XXXA Unspecified fall, initial encounter; Y93.9 Activity, unspecified; Y92.099 Unspecified place in other non-institutional residence as the place of occurrence of the external cause; E03.9 Hypothyroidism, unspecified; I12.9 Hypertensive chronic kidney disease with stage 1 through stage 4 chronic kidney disease, or unspecified chronic kidney disease; E78.5 Hyperlipidemia, unspecified; F41.9 Anxiety disorder, unspecified; M19.90 Unspecified osteoarthritis, unspecified site; R53.81 Other malaise; F32.9 Major depressive disorder, single episode, unspecified; D64.9 Anemia, unspecified; M81.0 Age-related osteoporosis without current pathological fracture; G25.81 Restless legs syndrome; K21.9 Gastro-esophageal reflux disease without esophagitis; Z66 Do not resuscitate; Z79.01 Long term (current) use of anticoagulants; Z79.82 Long term (current) use of aspirin; Z79.899 Other long term (current) drug therapy; Z86.73 Personal history of transient ischemic attack (TIA), and cerebral infarction without residual deficits; Z91.81 History of falling
CPT/HCPCS: 36415; 36416; 70450; 71045; 73502; 73564; 73610; 80048; 81001; 85025; 85610; 87426; 96361; 96374; 96375; 97162; 97166; 97530; 97535; 99218; 99285; J7030; P9612; A4216; G0378

== ENCOUNTER → 2020-11-22 04:00 | Outpatient (REF) | payer MEDICARE, SELFPAY ==
[2020-10-28 16:08] VITALS: BMI 31.3
[2020-11-22 08:49] LABS: Hematocrit 40.4 % (37-47); Hemoglobin 12.3 g/dL (12.0-15.0); Mean Corp Hgb Conc 30.4 g/dL (32-36); Mean Corpuscular Hgb 26.6 pg (27.0-32.0); Mean Corpuscular Volume 87.3 fL (81-99); Mean Platelet Vol. 10.1 fl (6.2-12.0); Platelet Count 238 K/mm3 (150-450); RBC Distribution Width CV 15.8 % (11.6-14.6); RBC Distribution Width SD 50.5 fl (35.1-43.9); Red Blood Count 4.63 M/mm3 (4.2-5.4); White Blood Count 5.6 K/mm3 (4.4-11.0)
[2020-11-22 09:02] LABS: Valproic Acid (Depakene) Level 10 ug/mL (50-100)
== END ==
LOC: OLS.DANBUR 04:00
PROVIDERS: PCP Family Medicine; Referring Provider Family Medicine; Visit Provider Family Medicine
DX: E07.9 Disorder of thyroid, unspecified (principal); E03.9 Hypothyroidism, unspecified
CPT/HCPCS: 36415; 80164; 85027